=== PATIENT | male | born 1975 | race Caucasian/White ===

== ENCOUNTER → 2017-06-10 08:53 | Outpatient (CLI) | payer BC, SELFPAY ==
[2017-06-10 10:02] LABS: Absolute Lymphocyte Count 2.15 X10^3/ul (0.83-4.51); Absolute Neutrophil Count 3.3 X10^3/uL (2.0-7.7); Basophil# 0.03 X10^3/uL; Basophil% 0.5 % (0-1); Eosinophils% 1.6 % (0-5); Hemoglobin 17.6 g/dl (13.0-16.5); Lymphocyte # 2.15 X10^3/ul (4.0); Lymphocyte % 35.2 % (19-41); Mean Corp Hgb Conc 35.9 g/gl (32-36); Mean Corpuscular Hgb 32.8 pg (27.0-32.0); Mean Corpuscular Volume 91.2 fL (80-94); Mean Platelet Vol. 12.4 fl (6.2-12.0); Monocyte# 0.54 X10^3/uL; Monocyte% 8.9 % (0-10); Neutrophil # 3.27 X10^3/uL (2.7-7.7); Neutrophil % 53.6 % (47-70); Platelet Count 176 K/mm3 (150-450); RBC Distribution Width CV 12.4 % (11.6-14.6); RBC Distribution Width SD 41.4 fl (35.1-43.9); Red Blood Count 5.37 M/mm3 (4.6-6.2); White Blood Count 6.1 K/mm3 (4.4-11.0)
[2017-06-10 10:07] LABS: POSITIVE COUNT NO; POSITIVE DIFFERENTIAL NO; POSITIVE MORPHOLOGY NO
[2017-06-10 10:14] LABS: ALB/GLOB Ratio 1.3 RATIO (0.9-2.4); AST(SGOT) 33 U/L (15-37); Alanine Aminotransfer ALT/SGPT 67 U/L (16-61); Albumin, Serum 4.3 g/dL (3.2-5.0); Alkaline Phosphatase 86 U/L (45-117); Anion Gap 7 (5-15); BUN 14 mg/dL (7-18); BUN/Creat Ratio 14.2 RATIO (10-20); Chloride 103 mmol/L (98-107); Cholesterol 211 mg/dL (200); Creatinine, Serum 0.99 mg/dL (0.70-1.30); EST Glomerular Filtration Rate 88 mL/min (>60); Est Glom Filt Rate - Afr Amer 106 mL/min (>60); Globulin 3.3 g/dL (2.2-4.2); Glucose 94 mg/dL (70-110); High Density Lipoprotein 41 mg/dL; Magnesium 2.2 mg/dL (1.6-2.6); Protein, Total 7.6 g/dL (6.4-8.2); Sodium Level 138 mmol/L (136-145); Triglycerides 143 mg/dL; Very Low Density Lipoprotein 29 mg/dL (5-40)
== END ==
PROVIDERS: Family Provider Family Medicine; PCP Family Medicine; Visit Provider Family Medicine
DX: Z00.00 Encounter for general adult medical examination without abnormal findings (principal)
CPT/HCPCS: 36415; 80053; 80061; 83735; 85025

== ENCOUNTER → 2019-07-29 10:31 | Outpatient (CLI) | payer BC, SELFPAY ==
[2019-07-29 12:38] LABS: Hematocrit 51.7 % (40-54); Mean Corp Hgb Conc 34.8 g/dL (32-36); Mean Corpuscular Hgb 31.6 pg (27.0-32.0); Mean Corpuscular Volume 90.9 fL (80-94); Mean Platelet Vol. 11.8 fl (6.2-12.0); Platelet Count 216 K/mm3 (150-450); RBC Distribution Width CV 11.9 % (11.6-14.6); RBC Distribution Width SD 39.1 fl (35.1-43.9); Red Blood Count 5.69 M/mm3 (4.6-6.2); White Blood Count 6.9 K/mm3 (4.4-11.0)
[2019-07-29 13:11] LABS: Anion Gap 6 (5-15); BUN 15 mg/dL (7-18); BUN/Creat Ratio 16.6 RATIO (10-20); Calcium,Total 9.6 mg/dL (8.5-10.1); Chloride 109 mmol/L (98-107); EST Glomerular Filtration Rate 96 mL/min (>60); Est Glom Filt Rate - Afr Amer 117 mL/min (>60); Glucose 85 mg/dL (74-106); Magnesium 1.9 mg/dL (1.6-2.6); Potassium 3.8 mmol/L (3.5-5.1); Sodium Level 142 mmol/L (136-145); Thyroid Stim Hormone (TSH) 1.59 uIU/mL (0.358-3.74)
[2019-07-29 14:06] LABS: Scan Indicated on CBC? Y/N YES- FLAGS NOTED
[2019-08-01 15:39] LABS: Pathologist Review Reviewed
== END ==
PROVIDERS: Family Medicine; PCP Family Medicine; Referring Provider Family Medicine; Visit Provider Family Medicine
DX: I48.91 Unspecified atrial fibrillation (principal)
CPT/HCPCS: 36415; 80048; 83735; 84443; 85027

== ENCOUNTER 2019-07-29 13:28 | Emergency (ER) | payer BC, SELFPAY ==
[2019-07-29 13:29] VITALS: BP 117/87; PULSE 80; RESP 19; TEMP 36.4; O2SAT 96; BMI 29.7
--- NOTE | 2019-07-29 13:36 | EKG12_ITS ---
Test Reason : Blood Pressure : / mmHG Vent. Rate : 088 BPM Atrial Rate : 091 BPM P-R Int : 000 ms QRS Dur : 078 ms QT Int : 328 ms P-R-T Axes : 000 044 029 degrees QTc Int : 396 ms Atrial fibrillation Abnormal ECG Confirmed by BRO QURESHI MD ([id number]), editorial cartoonist HUSSAIN JOHN ([id number]) on 08/01/2019 10:51:31 AM Referred By: MITCHELL Confirmed By:BRO QURESHI MD
--- NOTE | 2019-07-29 13:36 | RAD_ITS ---
STUDY: X-RAY CHEST REASON FOR EXAM: Male, 44 years old. CHEST PAIN, PALPITATIONS, LIGHTHEADED TECHNIQUE: Single AP portable view of the chest. COMPARISON: None. FINDINGS: EKG electrode are seen. The lungs are clear and expanded. There is no demonstrated pleural abnormality. Normal size heart. Normal mediastinum and fiordaliza. Normal visualized pulmonary arteries. Normal visualized aortic arch and descending thoracic aorta. Normal visualized thoracic spine. Normal visualized ribs, clavicles, and shoulders. There is no demonstrated abnormality of the visualized soft tissue structures of the upper abdomen. RAD/Chest 1 View (Portable) IMPRESSION: Normal x-ray examination of the chest. Electronically Signed: Hong Foreman, at 14:23 EDT , Service support ,
--- NOTE | 2019-07-29 13:37 | ED.DCSUM_ITS ---
History of Present Illness Chief Complaint: Palpitations Informant: Patient Onset: Days Context: Gradual Onset Timing: Intermittent Current Severity: Moderate Maximum Severity: Moderate Narrative: The patient is an otherwise healthy 44-year-old male that presents to the emergency department with palpitations and near syncope. The patient states that for the past few days, he is noticed that he felt like his heart was fluttering. He states that today, when he got up, he felt very lightheaded and felt as if he was going to pass out. He felt like his heart was skipping beats. He went and saw his primary care. He had an EKG done and was diagnosed with new A. fib. He was started on metoprolol. He states he took 1 dose, but was feeling lightheaded and felt as if he was going to pass out again. He presented here. Prior similar symptoms: No Recent Illness/Hospitalization: No Past Medical History - Allergies and Home Meds Allergies/Adverse Reactions: Allergies No Known Allergies Allergy (Verified 07/29/19 13:34) Primary Care Physician: Quang Gonzáles MD [STAFF PHYSICIAN] - Prior records reviewed: Yes Past Medical History: - - a fib Surgical History: noncontributory Smoking Status: Current some day smoker Review of Systems General: Denies: Chills, Fever, Sweats Eyes: Denies: Visual changes - bilaterally, Diplopia ENT: Denies: Rhinorrhea, Sore throat Cardiovascular: Reports: Palpitations, Heart racing. Denies: Chest pain Respiratory: Denies: Dyspnea, Cough, Dyspnea on exertion Gastrointestinal: Denies: Abdominal pain, Nausea, Vomiting, Diarrhea, Melena, Hematochezia Genitourinary: Denies: Dysuria, Hematuria, Frequency Musculoskeletal: Denies: Back pain, Extremity Pain Skin: Denies: Rash, Wounds Neurological: Denies: Headache, Weakness, Numbness Physical Exam Vital Signs/Narrative: Vital Signs Temp Pulse Resp BP Pulse Ox 07/29/19 13:29 97.6 F L 80 19 H 117/87 H 96 Inital Vital Signs reviewed: Yes General: Well nourished, Well developed, No Acute Distress Head: Normocephalic, Atraumatic Eyes: Perrl, EOMI ENT: Moist mucous membranes, No rhinorrhea Neck: Supple, Nontender Cardiovascular: Regular rhythm, No murmurs, Irregular Respiratory: No distress, CTA bilaterally, Chest nontender Abdomen: Soft, Nontender, Nondistended, Normal bowel sounds Back: Nontender, Normal Inspection Extremities: Nontender, No edema Skin: Normal color, No rash Neurological: Alert, Oriented x3, Cranial nerves II-XII grossly intact, Normal Strength, Normal Sensation Psychological: Normal affect, Normal Mood Diagnostic/Tx/Re-eval Chest X-Ray - ED: 2 View, Normal, Heart, Lungs, Mediastinum Clinical Impression(s) from Imaging Studies Chest X-Ray 07/29/19 13:36 IMPRESSION: Normal x-ray examination of the chest. Electronically Signed: Hong Foreman, at 14:23 EDT , Service support , Abnormal Lab Results 07/29/19 07/29/19 13:40 13:40 WBC 10.1 RBC 5.49 Hgb 17.3 H Hct 49.0 MCV 89.3 MCH 31.5 MCHC 35.3 RDW Std Deviation 37.9 RDW Coeff of Fifi 11.8 Plt Count 215 MPV 11.3 Immature Gran % (Auto) 0.200 Neut % (Auto) 74.4 H Lymph % (Auto) 19.3 [place] % (Auto) 5.6 Eos % (Auto) 0.1 Baso % (Auto) 0.4 Absolute Neuts (auto) 7.5 Absolute Lymphs (auto) 1.94 Nucleated RBC % 0 Sodium 140 Potassium 3.9 Chloride 110 H Carbon Dioxide 25.0 Anion Gap 5 BUN 13 Creatinine 0.88 Estim Creat Clear Calc 111.71 Est GFR (MDRD) Af Amer 120 Est GFR (MDRD) Non-Af 99 BUN/Creatinine Ratio 14.8 Glucose 106 Calcium 9.2 Magnesium 2.1 Troponin I < 0.015 TSH 1.17 - Rhythm Strip Rhythm Strip: A-fib Rate: 80 Ectopy: None - EKG Initial EKG Interpretation: Atrial Fibrillation Prior: No Prior - Medical Decision Making The patient presents with palpitations and near syncope. He was just diagnosed with atrial fibrillation today. I did calculate the patient's chads 2 score which was 0. EKG was obtained on arrival. It showed atrial fibrillation without rapid ventricular response. Screening labs were obtained were unre markable. Chest x-ray shows no significant evidence of enlarged cardiac silhouette or volume overload. The patient has had no chest pain. I did discuss his case with Dr. Gonzáles. He is comfortable with my plan for discharge with outpatient follow-up. He did request that I start novel anticoagulation as the patient does have an alcohol history until he can at least have his echo. The patient is comfortable with this plan of care. He will be seen in the office early next week for further cardiology evaluation. Impression 1. New onset A. fib ED Disposition - Plan for ED Patient: Instructions: Atrial Fibrillation Prescriptions: Rivaroxaban [Xarelto] 15 mg PO BID #42 tab Prescription Printed Referrals: Quang Gonzáles MD [STAFF PHYSICIAN] -
--- NOTE | 2019-07-29 13:40 | ED.RN ---
NO OLD EKG
[2019-07-29 13:44] VITALS: O2SAT 100
[2019-07-29 13:49] LABS: Absolute Lymphocyte Count 1.94 X10^3/uL (0.83-4.51); Absolute Neutrophil Count 7.5 X10^3/uL (2.0-7.7); Basophil# 0.04 X10^3/uL; Basophil% 0.4 % (0-1); Eosinophil# 0.01 X10^3/uL; Eosinophils% 0.1 % (0-5); Hemoglobin 17.3 g/dL (13.0-16.5); Lymphocyte # 1.94 X10^3/ul (4.0); Lymphocyte % 19.3 % (19-41); Mean Corp Hgb Conc 35.3 g/dL (32-36); Mean Corpuscular Hgb 31.5 pg (27.0-32.0); Mean Corpuscular Volume 89.3 fL (80-94); Mean Platelet Vol. 11.3 fl (6.2-12.0); Monocyte# 0.56 X10^3/uL; Monocyte% 5.6 % (0-10); NRBC Flagged by Analyzer 0 % (0-5); Neutrophil # 7.48 X10^3/uL (2.7-7.7); Neutrophil % 74.4 % (47-70); Platelet Count 215 K/mm3 (150-450); RBC Distribution Width CV 11.8 % (11.6-14.6); RBC Distribution Width SD 37.9 fl (35.1-43.9); Red Blood Count 5.49 M/mm3 (4.6-6.2); White Blood Count 10.1 K/mm3 (4.4-11.0)
[2019-07-29 14:15] LABS: Anion Gap 5 (5-15); BUN 13 mg/dL (7-18); BUN/Creat Ratio 14.8 RATIO (10-20); Calcium,Total 9.2 mg/dL (8.5-10.1); Chloride 110 mmol/L (98-107); Creatinine, Serum 0.88 mg/dL (0.70-1.30); EST Glomerular Filtration Rate 99 mL/min (>60); Est Glom Filt Rate - Afr Amer 120 mL/min (>60); Estimated Creatinine Clearance 111.71 ml/min; Glucose 106 mg/dL (74-106); Magnesium 2.1 mg/dL (1.6-2.6); Potassium 3.9 mmol/L (3.5-5.1); Sodium Level 140 mmol/L (136-145); Thyroid Stim Hormone (TSH) 1.17 uIU/mL (0.358-3.74)
[2019-07-29] MEDS: 0.9% Normal Saline 1,000 ML 150 ML IV (14:55)
[2019-07-29 15:17] VITALS: BP 114/67; PULSE 74; RESP 16; O2SAT 98
== END 2019-07-29 15:18 | disposition home or self-care (01) ==
PROVIDERS: Emergency Provider Emergency Medicine; PCP Family Medicine
DX: I48.91 Unspecified atrial fibrillation (principal); F17.200 Nicotine dependence, unspecified, uncomplicated
CPT/HCPCS: 71045; 80048; 83735; 84443; 84484; 85025; 93005; 99284; A4216

== ENCOUNTER → 2019-08-04 08:34 | Outpatient (CLI) | payer BC, SELFPAY ==
[2019-08-02 14:03] VITALS: BMI 29.5
[2019-08-04 09:15] LABS: AST(SGOT) 34 U/L (15-37); Alanine Aminotransfer ALT/SGPT 75 U/L (16-61); Albumin, Serum 4.2 g/dL (3.2-5.0); Alkaline Phosphatase 91 U/L (45-117); Bilirubin, Direct 0.17 mg/dL (0.00-0.30); Cholesterol 206 mg/dL (200); Globulin 3.4 g/dL (2.2-4.2); High Density Lipoprotein 34 mg/dL; Protein, Total 7.6 g/dL (6.4-8.2); Triglycerides 133 mg/dL; Very Low Density Lipoprotein 27 mg/dL (5-40)
== END ==
PROVIDERS: PCP Family Medicine; Referring Provider Internal Medicine Cardiovascular Disease; Visit Provider Internal Medicine Cardiovascular Disease
DX: E78.5 Hyperlipidemia, unspecified (principal)
CPT/HCPCS: 36415; 80061; 80076

== ENCOUNTER → 2019-08-05 14:39 | Outpatient (CLI) | payer BC, SELFPAY ==
[2019-08-02 14:03] VITALS: BMI 29.5
--- NOTE | 2019-08-05 14:43 | ECHOD_ITS ---
Reason For Study: AFIB/FLUTTER Procedure This was a 2D Doppler, Color Flow transthoracic echocardiogram. Exam performed in department. Left Ventricle Normal size and thickness. The estimated ejection fraction is 65 %. Normal diastology for age. No regional wall motion abnormalities noted. Right Ventricle Normal size and thickness. Normal systolic function. Atria Normal left atrium. Normal right atrium. Normal atrial septum. Mitral Valve The mitral valve is structurally normal. No prolapse or stenosis seen. Trivial mitral valve insufficiency. Tricuspid Valve Normal tricuspid valve. Trivial tricuspid valve insufficiency. Right ventricular systolic pressure estimated to be 37 mmHg. Mild pulmonary hypertension. Aortic Valve Trisinus/trileaflet aortic valve. Normal aortic valve. Pulmonic Valve Normal pulmonic valve. Great Vessels Normal aortic root. Normal arch. Normal inferior vena cava. Inferior vena cava collapse with sniff. Pericardium/Pleural No pericardial effusion. MMode/2D Measurements & Calculations LVIDd: 5.3 cm IVSd: 0.86 cm Ao root diam: 3.1 cm LVIDs: 3.3 cm LVPWd: 0.99 cm RVDd: 3.6 cm FS: 36.6 % LAV(MOD-bp): 46.8 ml LA A4 area: 16.1 cm2 LA dimension(2D): 3.4 cm LAV(MOD-bp) Indexed: 21.9 ml/m2 LAV(MOD-sp2): 48.4 ml LAV(MOD-sp4): 44.7 ml RA A4 area: 13.7 cm2 Time Measurements MV dec time: 0.19 sec Doppler Measurements & Calculations MV E max mickey: 62.6 cm/sec Lat Peak E' Mickey: 9.3 cm/sec Med Peak E' Mickey: 8.6 cm/sec MV A max mickey: 56.9 cm/sec E/E' lat: 6.7 E/E' med: 7.2 MV E/A: 1.1 Ao V2 max: 109.2 cm/sec LV V1 max: 97.6 cm/sec PA V2 max: 118.8 cm/sec Ao max P.8 mmHg LV V1 max P.8 mmHg Ao V2 mean: 80.9 cm/sec Ao mean P.8 mmHg Ao V2 VTI: 19.2 cm TR max mickey: 256.4 cm/sec TR max P.6 mmHg Interpretation Summary The estimated ejection fraction is 65 %. Normal diastology for age. Trivial mitral valve insufficiency. Trivial tricuspid valve insufficiency. Right ventricular systolic pressure estimated to be 37 mmHg. Ordering Physician: Quang Gonzáles Referring Physician: Bryn Carrion Performed By: Nazanin Olivas RDCS, RVT
== END ==
PROVIDERS: PCP Family Medicine; Referring Provider Internal Medicine Cardiovascular Disease; Visit Provider Internal Medicine Cardiovascular Disease
DX: R55 Syncope and collapse (principal); R00.2 Palpitations; I48.91 Unspecified atrial fibrillation; E78.5 Hyperlipidemia, unspecified
CPT/HCPCS: 93306

== ENCOUNTER → 2019-09-12 09:58 | Outpatient (CLI) | payer BC, SELFPAY ==
[2019-08-02 14:03] VITALS: BMI 29.5
--- NOTE | 2019-09-12 09:59 | STE_ITS ---
Reason For Study: ATRIAL FIB/FLUTTER Stress Results Protocol: Monty Protocol Maximum Predicted HR: 174 bpm Target HR: 148 bpm % Maximum Predicted HR: 93 % DurationHeart Rate Stage (mm:ss) (bpm) BP BASELINE 76 122/88 STAGE 1 3:00 103 122/80 STAGE 2 3:00 113 150/78 STAGE 3 3:00 129 148/76 STAGE 4 3:00 162 160/78 RECOVERY 111 138/90 Stress Duration: 12:00 mm:ss Maximum Stress HR: 162 bpm Baseline Echocardiogram Findings The estimated ejection fraction is 65 %. Stress Echo Wall motion Data Resting WM Intermediate WM Stress WM Resting Wall Motion Wall Motion Stress No regional wall motion No regional wall motion abnormalities noted. abnormalities noted. EKG Data The baseline ECG displays normal sinus rhythm. The patient exercised according to the regular Monty protocol for a total duration of 12:00. The maximum heart rate attained was 162 beats per minute. This was 93% of maximum predicted heart rate. The patient exercised into stage 5 of the Monty protocol. During stress, there were no ST or T wave changes noted to suggest ischemia. No clinical angina was noted. No arrhythmias noted. Interpretation Summary The estimated ejection fraction is 65 %. Normal, adequate, treadmill echocardiogram. Negative for ischemia by EKG and echocardiographic criteria. No anginal symptoms noted. No arrhythmias noted. Average exercise capacity for age. Appropriate blood pressure response to exercise. Test terminated due to attainment target heart rate and dyspnea. Final LVEF is 75%. No complications. Ordering Physician: Quang Gonzáles Referring Physician: Quang Gonzáles Performed By: Manda Orozco RDCS
== END ==
PROVIDERS: PCP Family Medicine; Referring Provider Internal Medicine Cardiovascular Disease; Visit Provider Internal Medicine Cardiovascular Disease
DX: I48.91 Unspecified atrial fibrillation (principal); E78.5 Hyperlipidemia, unspecified; R00.2 Palpitations; R55 Syncope and collapse
CPT/HCPCS: 93017; 93350

== ENCOUNTER → 2019-11-03 08:14 | Outpatient (CLI) | payer BC, SELFPAY ==
[2019-08-02 14:03] VITALS: BMI 29.5
== END ==
PROVIDERS: PCP Family Medicine; Referring Provider Internal Medicine Cardiovascular Disease; Visit Provider Internal Medicine Cardiovascular Disease
DX: G47.10 Hypersomnia, unspecified (principal); I48.91 Unspecified atrial fibrillation
CPT/HCPCS: 95806

== ENCOUNTER → 2020-02-17 09:05 | Outpatient (CLI) | payer BC, SELFPAY ==
[2019-08-02 14:03] VITALS: BMI 29.5
[2020-02-17 11:22] LABS: ALB/GLOB Ratio 1.2 RATIO (0.9-2.4); AST(SGOT) 28 U/L (15-37); Alanine Aminotransfer ALT/SGPT 54 U/L (16-61); Albumin, Serum 4.1 g/dL (3.2-5.0); Alkaline Phosphatase 92 U/L (45-117); Anion Gap 4 (5-15); BUN 12 mg/dL (7-18); BUN/Creat Ratio 12.2 RATIO (10-20); Calcium,Total 9.2 mg/dL (8.5-10.1); Chloride 106 mmol/L (98-107); Cholesterol 209 mg/dL (200); Creatinine, Serum 0.98 mg/dL (0.70-1.30); EST Glomerular Filtration Rate 87 mL/min (>60); Est Glom Filt Rate - Afr Amer 105 mL/min (>60); Globulin 3.5 g/dL (2.2-4.2); Glucose 92 mg/dL (74-106); High Density Lipoprotein 37 mg/dL; Magnesium 2.3 mg/dL (1.6-2.6); Potassium 4.1 mmol/L (3.5-5.1); Protein, Total 7.6 g/dL (6.4-8.2); Sodium Level 139 mmol/L (136-145); Thyroid Stim Hormone (TSH) 1.78 uIU/mL (0.358-3.74); Triglycerides 163 mg/dL; Very Low Density Lipoprotein 33 mg/dL (5-40)
== END ==
PROVIDERS: PCP Family Medicine; Referring Provider Family Medicine; Visit Provider Family Medicine
DX: I48.91 Unspecified atrial fibrillation (principal)
CPT/HCPCS: 36415; 80053; 80061; 83735; 84443

== ENCOUNTER → 2020-07-04 | Outpatient (CLI) | payer BC, SELFPAY ==
[2020-03-16 10:58] VITALS: BMI 29.8
== END | disposition home or self-care (01) ==
LOC: LABSPEC 13:47
PROVIDERS: PCP Family Medicine; Referring Provider Family Medicine; Visit Provider Family Medicine
DX: J06.9 Acute upper respiratory infection, unspecified (principal)
CPT/HCPCS: 87635; U0003

== ENCOUNTER 2022-01-25 14:30 | Emergency (ER) | payer OTHER, SELFPAY ==
[2022-01-25 14:31] VITALS: BP 125/81; PULSE 99; RESP 16; TEMP 36.6; O2SAT 99; BMI 29.0
[2022-01-25 14:59] VITALS: O2SAT 98
--- NOTE | 2022-01-25 14:59 | EKG12_ITS ---
Test Reason : PALPITATIONS Blood Pressure : / mmHG Vent. Rate : 101 BPM Atrial Rate : 000 BPM P-R Int : 000 ms QRS Dur : 078 ms QT Int : 322 ms P-R-T Axes : 000 040 038 degrees QTc Int : 417 ms Atrial fibrillation with rapid ventricular response Abnormal ECG Confirmed by TITUS MARRUFO, BRO ([id number]), newspaper editor EDWARD GASPAR ([id number]) on 01/27/2022 1:59:10 PM Referred By: Confirmed By:BRO QURESHI MD
--- NOTE | 2022-01-25 15:04 | RAD_ITS ---
STUDY: X-RAY CHEST REASON FOR EXAM: Male, 46 years old. chest pain TECHNIQUE: Single AP portable view of the chest. COMPARISON: July 29, 2019 FINDINGS: The lungs are clear and expanded. There is no demonstrated pleural abnormality. Normal size heart. Normal mediastinum and fiordaliza. Normal visualized pulmonary arteries. Normal visualized aortic arch and descending thoracic aorta. Normal visualized thoracic spine. Normal visualized ribs, clavicles, and shoulders. There is no demonstrated abnormality of the visualized soft tissue structures of the upper abdomen. RAD/Chest 1 View (Portable) IMPRESSION: Normal x-ray examination of the chest. Electronically Signed: Bertin Jensen MD at 15:25 EDT ,
[2022-01-25 15:07] LABS: Absolute Lymphocyte Count 3.14 X10^3/uL (0.83-4.51); Absolute Neutrophil Count 6.4 X10^3/uL (2.0-7.7); Basophil# 0.06 X10^3/uL; Basophil% 0.6 % (0-1); Eosinophil# 0.02 X10^3/uL; Eosinophils% 0.2 % (0-5); Hematocrit 50.9 % (40-54); Hemoglobin 17.7 g/dL (13.0-16.5); Lymphocyte # 3.14 X10^3/ul (0.83-4.51); Lymphocyte % 30.3 % (19-41); Mean Corp Hgb Conc 34.8 g/dL (32-36); Mean Corpuscular Hgb 31.7 pg (27.0-32.0); Mean Corpuscular Volume 91.1 fL (80-94); Mean Platelet Vol. 12.1 fl (6.2-12.0); Monocyte% 6.7 % (0-10); NRBC Flagged by Analyzer 0 % (0-5); Neutrophil # 6.43 X10^3/uL (2.7-7.7); Neutrophil % 61.9 % (47-70); Platelet Count 229 K/mm3 (150-450); RBC Distribution Width CV 12.1 % (11.6-14.6); RBC Distribution Width SD 40.1 fl (35.1-43.9); Red Blood Count 5.59 M/mm3 (4.6-6.2); White Blood Count 10.4 K/mm3 (4.4-11.0)
[2022-01-25 15:24] LABS: Anion Gap 10 (5-15); BUN 9 mg/dL (7-18); BUN/Creat Ratio 9.5 RATIO (10-20); Calcium,Total 9.8 mg/dL (8.5-10.1); Chloride 105 mmol/L (98-107); Creatinine, Serum 0.94 mg/dL (0.70-1.30); EST Glomerular Filtration Rate 90 mL/min (>60); Est Glom Filt Rate - Afr Amer 109 mL/min (>60); Estimated Creatinine Clearance 99.23 ml/min; Glucose 90 mg/dL (74-106); Potassium 3.3 mmol/L (3.5-5.1); Sodium Level 141 mmol/L (136-145); Troponin-I HS (w/2H Reflex) 4 pg/mL (3.0-78.0)
--- NOTE | 2022-01-25 15:49 | EX.ED.DYSGE1 ---
HPI History of Present Illness Chief Complaint: Palpitations Narrative Narrative: 46-year-old male presenting with palpitations. He states he has a history of atrial fibrillation in the past. He states he was started on 50 mg of metoprolol p.o. twice daily and Xarelto. He states he followed up with Dr. Ojeda for this. He had an echocardiogram and a stress test which were good. Patient requested to be weaned off of the medication. He states has been good for a couple of years without any palpitations except for maybe a small run. Today he had palpitations that started last night after eating. He went to the urgent care to get refills on his medications because his prescriptions were old and they sent him to the emergency room. He does not have any chest pain. He is not short of breath. No nausea or vomiting. No history of DVT/PE and no risk factors. He states he has been healthy and over this timeframe he has quit smoking. He drinks occasional beers maybe twice a month. He states has been exercising. [facility] Medical History Hyperlipidemia Near syncope New onset atrial fibrillation (07/13/19) Nicotine dependence KIMBER (obstructive sleep apnea) Psoriatic arthritis Home Medications ascorbic acid (vitamin C) 1,000 mg tablet 1 g PO DAILY 03/18/21 [History Last Taken Unknown] calcipotriene 0.005 % topical ointment 1 applic topical DAILY 03/18/21 [History Last Taken Unknown] cholecalciferol (vitamin D3) 125 mcg (5,000 unit) tablet 125 mcg PO DAILY 03/18/21 [History Last Taken Unknown] clobetasol 0.05 % topical cream 1 applic topical DAILY 03/18/21 [History Last Taken Unknown] apremilast 30 mg tablet (Otezla) 30 mg PO BID 01/25/22 [History Last Taken Unknown] metoprolol tartrate 50 mg tablet 50 mg PO BID #60 tabs 01/25/22 [Rx Last Taken Unknown] Allergy/AdvReac Type Severity Reaction Status Date / Time No Known Allergies Allergy Verified 03/18/21 08:37 Surgical History H/O arthroscopy of left knee Social History Smoking Status: Former smoker quit date: 07/23/19 alcohol intake: current alcohol intake frequency: a few times a month ROS ROS ED Constitutional Constitutional ED: Denies chills or fever(s) Eyes Eyes: Denies change in vision ENT ENT ED: Denies rhinorrhea or sore throat Cardiovascular Cardiovascular: Reports palpitations and racing heartbeat; Denies chest pain Respiratory/Chest Respiratory/Chest: Denies cough or dyspnea Gastrointestinal Gastrointestinal: Denies abdominal pain or constipation Genitourinary Genitourinary ED: Denies dysuria or hematuria Musculoskeletal Musculoskeletal: Denies arthralgias Integumentary Denies abscess or Abrasions Neurologic Neurologic: Denies headache(s) or paresthesias Psychiatric Psychiatric: Denies anxiety or depression EXAM Physical Exam Const Vital Signs: 01/25/22 14:31 01/25/22 14:36 01/25/22 14:59 Temperature 97.9 F Temperature Source Oral Pulse Rate 99 Respiratory Rate 16 Respiratory Effort Normal Blood Pressure 125/81 H Blood Pressure Mean 95 Pulse Ox 99 98 Oxygen Delivery Method Room Air Room Air Positive well nourished General Appearance ED: NAD; Negative for pallor HEENT Reports moist mucous membranes Negative for trauma Eyes PERRL and EOMs intact bilaterally General Eye ED: Negative for pale conjunctiva Chest Wall inspection of chest normal and palpation of chest normal Resp normal respiratory effort and clear to auscultation bilaterally Auscultation: Negative for rales, rhonchi or wheezes Cardio Rhythm: abnormal rhythm irregularly irregular GI normal to inspection, nondistended, normoactive bowel sounds Neuro oriented x3 and CN's II-XII intact bilaterally Sensorium / Orientation: alert Motor Exam: strength 5/5 throughout Psych mental status grossly normal Skin no rashes or lesions noted and no wounds General Skin Exam: Negative for jaundice or pallor MDM MDM MDM Narrative Medical decision making narrative: Patient presenting with palpitations. He was seen at the urgent care and was sent to the emergency room. He has a history of atrial fibrillation and his EKG here shows atrial fibrillation a rate of 101 bpm. Patient denies any chest pain. Lab work was obtained and his CBC and BMP are unremarkable with exception of a potassium of 3.3. High-sensitivity troponin is 4. Chest x-ray on my interpretation shows no acute cardiopulmonary process and the radiologist does agree patient has no DVT/PE risk factors. He request refills on his medications. I did calculate his [id number] score and by this it does not seem that he needs to be on any anticoagulation. I will restart him on metoprolol 50 mg p.o. twice daily. Patient states he will take baby aspirin daily. He is to follow-up with Dr. Ojeda. Impression: 1. Paroxysmal A. fib 2. Palpitation Lab Data Attestation: I reviewed the patient's lab results. Labs: Laboratory Results - last 24 hr 01/25/22 01/25/22 14:15 14:15 WBC 10.4 RBC 5.59 Hgb 17.7 H Hct 50.9 MCV 91.1 MCH 31.7 MCHC 34.8 RDW Std Deviation 40.1 RDW Coeff of Fifi 12.1 Plt Count 229 MPV 12.1 H Immature Gran % (Auto) 0.300 Neut % (Auto) 61.9 Lymph % (Auto) 30.3 [place] % (Auto) 6.7 Eos % (Auto) 0.2 Baso % (Auto) 0.6 Absolute Neuts (auto) 6.4 Absolute Lymphs (auto) 3.14 Nucleated RBC % 0 Sodium 141 Potassium 3.3 L Chloride 105 Carbon Dioxide 26.0 Anion Gap 10 BUN 9 Creatinine 0.94 Estim Creat Clear Calc 99.23 Est GFR (MDRD) Af Amer 109 Est GFR (MDRD) Non-Af 90 BUN/Creatinine Ratio 9.5 L Glucose 90 Calcium 9.8 Troponin I High Sens 4 Radiography Diagnostic Testing: Clinical Impression(s) from Imaging Studies Chest X-Ray 01/25/22 15:04 IMPRESSION: Normal x-ray examination of the chest. Electronically Signed: Bertin Jensen MD at 15:25 EDT Reading Location ID and State: [facility] / [place] , Service support , Discharge Plan Triage Chief Complaint: Palpitations ED Provider: Walt Mead Dx/Rx/DC Orders Instructions: ED AFIB Prescriptions: New metoprolol tartrate 50 mg tablet 50 mg PO BID Qty: 60 0RF No Action calcipotriene 0.005 % ointment 1 applic topical DAILY clobetasol 0.05 % cream 1 applic topical DAILY ascorbic acid (vitamin C) 1,000 mg tablet 1 g PO DAILY cholecalciferol (vitamin D3) 125 mcg (5,000 unit) tablet 125 mcg PO DAILY Otezla 30 mg Tablet 30 mg PO BID Primary Care Provider: Bryn Carrion Referrals: Sunny Ojeda MD [Med Staff - Active Staff] - As soon as possible Bryn Carrion MD [Primary Care Provider] - Disposition Disposition: Home, Self Care
[2022-01-25 16:12] VITALS: BP 120/78; PULSE 103; RESP 16; O2SAT 98
[2022-01-25 17:03] LABS: Reflex Troponin-HS? (from REC) Y
== END 2022-01-25 16:13 | disposition home or self-care (01) ==
PROVIDERS: Emergency Provider Student in an Organized Health Care Education/Training Program; PCP Family Medicine; Visit Provider Student in an Organized Health Care Education/Training Program
DX: I48.0 Paroxysmal atrial fibrillation (principal); E78.5 Hyperlipidemia, unspecified; Z79.899 Other long term (current) drug therapy; Z87.891 Personal history of nicotine dependence
CPT/HCPCS: 71045; 80048; 84484; 85025; 93005; 99285

== ENCOUNTER → 2022-12-11 | Outpatient (CLI) | payer MEDICAID, SELFPAY ==
[2022-12-11 12:12] LABS: Absolute Lymphocyte Count 1.84 X10^3/uL (0.83-4.51); Absolute Neutrophil Count 3.3 X10^3/uL (2.0-7.7); Basophil# 0.04 X10^3/uL; Basophil% 0.7 % (0-1); Eosinophil# 0.05 X10^3/uL; Eosinophils% 0.9 % (0-5); Hematocrit 49.4 % (40-54); Hemoglobin 16.4 g/dL (13.0-16.5); Lymphocyte # 1.84 X10^3/ul (0.83-4.51); Mean Corp Hgb Conc 33.2 g/dL (32-36); Mean Corpuscular Hgb 30.9 pg (27.0-32.0); Mean Corpuscular Volume 93.2 fL (80-94); Mean Platelet Vol. 12.2 fl (6.2-12.0); Monocyte# 0.55 X10^3/uL; Monocyte% 9.6 % (0-10); NRBC Flagged by Analyzer 0 % (0-5); Neutrophil # 3.25 X10^3/uL (2.7-7.7); Neutrophil % 56.5 % (47-70); Platelet Count 200 K/mm3 (150-450); RBC Distribution Width CV 12.2 % (11.6-14.6); RBC Distribution Width SD 42.4 fl (35.1-43.9); White Blood Count 5.8 K/mm3 (4.4-11.0)
[2022-12-11 13:10] LABS: ALB/GLOB Ratio 1.1 RATIO (0.9-2.4); AST(SGOT) 25 U/L (15-37); Alanine Aminotransfer ALT/SGPT 47 U/L (16-61); Albumin, Serum 3.9 g/dL (3.2-5.0); Alkaline Phosphatase 89 U/L (45-117); Anion Gap 5 (5-15); BUN 12 mg/dL (7-18); BUN/Creat Ratio 14.3 RATIO (10-20); Chloride 108 mmol/L (98-107); Creatinine, Serum 0.84 mg/dL (0.70-1.30); EST Glomerular Filtration Rate 103 mL/min (>60); Est Glom Filt Rate - Afr Amer 125 mL/min (>60); Globulin 3.5 g/dL (2.2-4.2); Glucose 94 mg/dL (74-106); Magnesium 2.4 mg/dL (1.6-2.6); Potassium 4.3 mmol/L (3.5-5.1); Protein, Total 7.4 g/dL (6.4-8.2); Sodium Level 139 mmol/L (136-145); Thyroid Stim Hormone (TSH) 0.84 uIU/mL (0.358-3.74)
== END | disposition home or self-care (01) ==
LOC: MFPLAB 10:29
PROVIDERS: PCP Family Medicine; Visit Provider Family Medicine
DX: I48.91 Unspecified atrial fibrillation (principal)
CPT/HCPCS: 36415; 80053; 83735; 84443; 85025

== ENCOUNTER → 2023-01-19 | Outpatient (CLI) | payer MEDICAID, SELFPAY ==
--- NOTE | 2023-01-19 14:47 | RAD_ITS ---
STUDY: X-RAY CHEST REASON FOR EXAM: Male, 47 years old. H/o positive mantoux. TECHNIQUE: Frontal and lateral views of the chest on 3 images. COMPARISON: Chest dated January 2022. FINDINGS: The lungs are clear and expanded. There is no demonstrated pleural abnormality. Normal size heart. Normal mediastinum and fiordaliza. Normal visualized pulmonary arteries. Normal visualized aortic arch and descending thoracic aorta. Normal visualized thoracic spine. Normal visualized ribs, clavicles, and shoulders. No abnormality of the visualized soft tissue structures of the upper abdomen. RAD/Chest PA and Lateral IMPRESSION: No interval change. Normal x-ray examination of the chest. Electronically Signed: Geovanny Mcbride MD at 15:23 EDT ,
== END | disposition home or self-care (01) ==
LOC: MTRAD 14:42
PROVIDERS: PCP Family Medicine; Referring Provider Family Medicine; Visit Provider Family Medicine
DX: R76.12 Nonspecific reaction to cell mediated immunity measurement of gamma interferon antigen response without active tuberculosis (principal)
CPT/HCPCS: 71046

== ENCOUNTER → 2023-12-18 | Outpatient (CLI) | payer MEDICAID, SELFPAY ==
[2023-12-18 15:07] LABS: Absolute Lymphocyte Count 2.59 X10^3/uL (0.83-4.51); Absolute Neutrophil Count 2.6 X10^3/uL (2.0-7.7); Basophil# 0.03 X10^3/uL; Basophil% 0.5 % (0-1); Eosinophil# 0.13 X10^3/uL; Eosinophils% 2.2 % (0-5); Hematocrit 47.5 % (40-54); Hemoglobin 16.2 g/dL (13.0-16.5); Lymphocyte # 2.59 X10^3/ul (0.83-4.51); Lymphocyte % 44.3 % (19-41); Mean Corp Hgb Conc 34.1 g/dL (32-36); Mean Corpuscular Hgb 30.8 pg (27.0-32.0); Mean Corpuscular Volume 90.3 fL (80-94); Mean Platelet Vol. 11.8 fl (6.2-12.0); Monocyte# 0.45 X10^3/uL; Monocyte% 7.7 % (0-10); NRBC Flagged by Analyzer 0 % (0-5); Neutrophil # 2.63 X10^3/uL (2.7-7.7); Neutrophil % 45.1 % (47-70); Platelet Count 203 K/mm3 (150-450); RBC Distribution Width CV 12.4 % (11.6-14.6); RBC Distribution Width SD 41.2 fl (35.1-43.9); Red Blood Count 5.26 M/mm3 (4.6-6.2); White Blood Count 5.8 K/mm3 (4.4-11.0)
[2023-12-18 15:27] LABS: Vitamin D,25 Hydroxy 65.6 ng/mL
[2023-12-18 15:56] LABS: ALB/GLOB Ratio 1.2 RATIO (0.9-2.4); AST(SGOT) 35 U/L (15-37); Alanine Aminotransfer ALT/SGPT 49 U/L (16-61); Albumin, Serum 3.9 g/dL (3.2-5.0); Alkaline Phosphatase 96 U/L (45-117); Anion Gap 6 (5-15); BUN 8 mg/dL (7-18); CRP < 2.90 mg/L (0.0-3.0); Calcium,Total 8.8 mg/dL (8.5-10.1); Chloride 110 mmol/L (98-107); Cholesterol 224 mg/dL (200); Creatinine, Serum 0.89 mg/dL (0.70-1.30); EST Glomerular Filtration Rate 96 mL/min (>60); Est Glom Filt Rate - Afr Amer 116 mL/min (>60); Globulin 3.2 g/dL (2.2-4.2); Glucose 86 mg/dL (74-106); High Density Lipoprotein 37 mg/dL; Magnesium 2.4 mg/dL (1.6-2.6); PSA,Total - Annual Screen 0.71 ng/mL (0.00-4.00); Potassium 3.9 mmol/L (3.5-5.1); Protein, Total 7.1 g/dL (6.4-8.2); Sodium Level 140 mmol/L (136-145); Triglycerides 116 mg/dL; Very Low Density Lipoprotein 23 mg/dL (5-40)
[2023-12-22 11:59] LABS: ANTINUCLEAR ANTIBODIES DIRECT Negative (Negative)
== END | disposition home or self-care (01) ==
LOC: MFPLAB 11:22
PROVIDERS: PCP Family Medicine; Visit Provider Family Medicine
DX: I48.91 Unspecified atrial fibrillation (principal); L40.50 Arthropathic psoriasis, unspecified; Z12.5 Encounter for screening for malignant neoplasm of prostate; E78.5 Hyperlipidemia, unspecified
CPT/HCPCS: 84153; 36415; 80053; 80061; 82306; 83735; 85025; 86038; 86140; G0103

== ENCOUNTER 2024-01-22 09:00 | Day surgery (SDC) | payer MEDICAID, SELFPAY ==
[2024-01-22] VITALS (7 sets, daily range): BP systolic 110–131; BP diastolic 72–82; PULSE 73–84; RESP 16; TEMP 36.4–36.7; O2SAT 97–99; BMI 28.5
--- NOTE | 2024-01-22 09:18 | PRE.ANES_ITS ---
ASA Classification* ASA Classification ASA Classification: 2 Assessment & Plan Anesthesia* Anesthesia Assessment Anesthesia Assessment: Discussed sedation and/or anesthesia options, risks, benefits, and alternatives with patient/parents/legal guardian/POA. Questions invited. The patient/parents/legal guardian/POA seems to understand and agrees to proceed with anesthesia plan. Reviewed the physical assessment, medical history, allergy history and patient home medications list prior to surgery/procedure/anesthetic and documented any changes. Performed airway and anesthesia risk assessments. Anesthesia Type Anesthesia Type: MAC Anesthesia Focused Assessment* Airway Assessment Mouth opens: >3 cm Mallampati Score: II Focused Labs Anesthesia Preop lab: CBC WBC 5.8 K/mm3 (4.4-11.0) 12/18/23 11:23 RBC 5.26 M/mm3 (4.6-6.2) 12/18/23 11:23 Hgb 16.2 g/dL (13.0-16.5) 12/18/23 11:23 Hct 47.5 % (40-54) 12/18/23 11:23 Plt Count 203 K/mm3 (150-450) 12/18/23 11:23 CHEMISTRY Potassium 3.9 mmol/L (3.5-5.1) 12/18/23 11:23 Sodium 140 mmol/L (136-145) 12/18/23 11:23 Magnesium 2.4 mg/dL (1.6-2.6) 12/18/23 11:23 BUN 8 mg/dL (7-18) 12/18/23 11:23 Creatinine 0.89 mg/dL (0.70-1.30) 12/18/23 11:23 Glucose 86 mg/dL (74-106) 12/18/23 11:23 TSH 0.84 uIU/mL (0.358-3.74) 12/11/22 10:31 COAG Pre-Assessment Diagnosis/Proposed Procedure Planned Operative Procedure(s): CSCOPE Anesthesia History Anesthesia History - alarm signaler: Anesthesia History - alarm signaler Hx Hospitalization No 01/20/24 13:18 Any Problems With Anesthesia No 01/20/24 13:18 Cholinesterase deficiency No 01/20/24 13:18 You/Your Family Experience No 01/20/24 13:18 fever (hyperthermia) with Relationship Recent Exposure to Contagious Disease Does patient have nerve No 01/20/24 13:18 stimulator Patient instructed to have device shut off --Does patient have Pacemaker or ICD? When Was Last Pacemaker Check QUESTION #4 FULL TEXT: You/Your Family Experience fever (hyperthermia) with Anesthesia Last Oral Intake Last Oral intake: Last Oral Intake NPO since Meds taken in AM with sips of water? Meds patient instructed to take am of surgery PONV PONV - alarm signaler: PONV - alarm signaler Female No 01/20/24 13:18 HX of Motion Sickness No 01/20/24 13:18 HX of N/V After Surgery No 01/20/24 13:18 Non-Smoker Yes 01/20/24 13:18 Duration of Surgery greater No 01/20/24 13:18 than 60 minutes Number of Risk Factors 1 01/20/24 13:18 PONV Score Low Risk 01/20/24 13:18 Height & Weight Height & Weight: Anesthesia: Height & Weight Height 5 ft 10 in 12/21/23 09:32 Respiratory Assessment Respiratory Assessment - alarm signaler: Respiratory Tract Infection Hx - alarm signaler Hx Respiratory Tract Infection No 01/20/24 13:18 STOP Sleep Apnea STOP Sleep Apnea - alarm signaler: STOP Sleep Apnea - alarm signaler Hx Hypertension No 01/20/24 13:18 Hx Sleep Apnea No 01/20/24 13:18 CPAP BIPAP Do you snore loudly (louder Yes 01/20/24 13:18 than talking or can be heard Do you often feel tired/ No 01/20/24 13:18 fatigued/ sleepy during daytime? Has anyone observed you stop No 01/20/24 13:18 breathing during sleep? STOP Results Negative 01/20/24 13:18 QUESTION #5 FULL TEXT : Do you snore loudly (louder than talking or can be heard through closed doors)? Tobacco Use History Tobacco Use History - alarm signaler: Tobacco Use History - alarm signaler Tobacco Use Smoking Status Former smoker 01/20/24 13:18 Hx Tobacco Use Yes 01/20/24 13:18 Years Smoking Packs Smoked per Day Smoking Cessation Date was Yes - quit smoking within 15 01/20/24 13:18 within the last 15 years years Hx Smoking Cessation Date 04/19/23 01/20/24 13:18 Hx Smoking Cessation date quit unknown 01/20/24 13:18 Counseling Hematologic Medial History Hematologic Hx - alarm signaler: Hematologic Medical Hx - capacitor inspector Hx of Blood Transfusion No 01/20/24 13:18 Hx of Transfusion in last 3 No 01/20/24 13:18 Months Date of Last Transfusion (if within last 3 months) Ever experience any problems No 01/20/24 13:18 with transfusion(s)? Specify any problems Hx of Preganancy in last 3 N/A 01/20/24 13:18 Months Nurse Filling Out Transfusion NBUCHER 01/20/24 13:18 & Questions: Date: 01/20/24 01/20/24 13:18 Time: 13:21 01/20/24 13:18 Patient unable to answer at this time (ie. confused, unrespo /Reproduction History /Reproductive History - alarm signaler: /Reproductive Hx- alarm signaler Hx Now No 01/20/24 13:18 Gestational Age (in weeks): EDC: Hx Hx Para Hx Section SAB No 01/20/24 13:18 Active Medications Active Medications: Current Medications Generic Name Dose Route Start Last Admin Trade Name Freq PRN Reason Stop Dose Admin Lactated Ringer's 1,000 mls @ 15 mls/hr 01/22/24 09:15 IV .Q48H GILBERT PFSH Medical History Wears contact lenses Wears glasses Alcohol use Psoriasis Heartburn Former smoker History of atrial fibrillation History of stress test History of echocardiogram Cardiology follow-up encounter GERD (gastroesophageal reflux disease) Psoriatic arthritis Nicotine dependence KIMBER (obstructive sleep apnea) Hyperlipidemia New onset atrial fibrillation (07/13/19) Near syncope Home Medications ?Medication ?Instructions ?Recorded ?Last Taken ?Type calcipotriene 0.005 % topical 1 applic topical DAILY 03/18/21 Unknown History ointment clobetasol 0.05 % topical cream 1 applic topical DAILY 03/18/21 Unknown History apremilast 30 mg tablet (Otezla) 30 mg PO BID 01/25/22 Unknown History metoprolol tartrate 25 mg tablet 12.5 mg PO QHS PRN AFIB 01/20/24 Unknown History Allergy/AdvReac Type Severity Reaction Status Date / Time cat dander (cats) Allergy nasal Verified 01/20/24 13:16 congestion Family History Brother Psoriasis A-fib Father Brain aneurysm Surgical History History of colonoscopy H/O arthroscopy of left knee Social History household members: significant other and children number of children: 1 current occupational status: unemployed Smoking Status: Former smoker quit date: 07/23/19 alcohol intake: former substance use type: does not use Review of Systems (Anesthesia) ROS Narrative System reviewed and no additional complaints, except as documented.
[2024-01-22] MEDS: Lactated Ringers 1,000 ML 15 ML IV (09:37)
--- NOTE | 2024-01-22 10:24 | H&P.OPEN ---
HPI - General HPI Narrative DANIEL PAZ, is a 48 M who presents for screening colonoscopy. Patient has never had a colonoscopy in the past. He denies abdominal pain or blood in the stool. No family history of colon cancer. [facility] Medical History Wears contact lenses Wears glasses Alcohol use Psoriasis Heartburn Former smoker History of atrial fibrillation History of stress test History of echocardiogram Cardiology follow-up encounter GERD (gastroesophageal reflux disease) Psoriatic arthritis Nicotine dependence KIMBER (obstructive sleep apnea) Hyperlipidemia New onset atrial fibrillation (07/13/19) Near syncope Home Medications ?Medication ?Instructions ?Recorded ?Last Taken ?Type calcipotriene 0.005 % topical 1 applic topical DAILY 03/18/21 Unknown History ointment clobetasol 0.05 % topical cream 1 applic topical DAILY 03/18/21 Unknown History apremilast 30 mg tablet (Otezla) 30 mg PO BID 01/25/22 Unknown History metoprolol tartrate 25 mg tablet 12.5 mg PO QHS PRN AFIB 01/20/24 Unknown History Allergy/AdvReac Type Severity Reaction Status Date / Time cat dander (cats) Allergy nasal Verified 01/22/24 09:35 congestion Family History Brother Psoriasis A-fib Father Brain aneurysm Surgical History History of colonoscopy H/O arthroscopy of left knee Social History household members: significant other and children number of children: 1 current occupational status: unemployed Smoking Status: Former smoker quit date: 07/23/19 alcohol intake: former substance use type: does not use Past Medical/Surgical History Planned Operation Planned Operative Procedure(s): CSCOPE Previous Hospitalizations/Surgeries HX Hospitalizations: No Any Problems With Anesthesia: No You/Your Family Experience Fever (Hyperthermia) With Anes: No Cholinesterase deficiency: No Cardiovascular Hx Hypertension: No Respiratory Hx Sleep Apnea: No Hx Respiratory Tract Infection/Cold (presently): No Do You Snore Loudly (louder than talking or can be heard): Yes Do You Often Feel Tired/ Fatigued/ Sleepy Dring Daytime?: No Has Anyone Observed You Stop Breathing During Sleep?: No Result (for STOP score): Negative Smoking Status: Former smoker Neurological Does patient have nerve stimulator: No Reproduction : No Psycho/Social Hx Alcohol Use: Yes Miscellaneous Recent Exposure to Contagious Disease: No Allergies cat dander (cats) Allergy (Verified 01/22/24 09:35) nasal congestion Discharge Is Pt Admitted From a Custodial, or a Correction: No After D/C, Where Do you Plan to Go: Return Home Vital Signs Vital Signs Vital Signs: 01/22/24 09:38 01/22/24 09:38 Temperature 98.1 F Temperature Source Temporal Pulse Rate 84 Respiratory Rate 16 Respiratory Pattern Normal Blood Pressure 118/82 H Blood Pressure Mean 94 Blood Pressure Source Monitor Blood Pressure Position Semi-Fowlers Blood Pressure Location Left Arm Pulse Ox 99 Oxygen Delivery Method Room Air Weight Weight: 199 lb 1.239 oz Body Mass Index (BMI) 28.5 Physical Exam Const alert and oriented x3 HEENT normocephalic Eyes PERRL Resp normal respiratory effort and normal air movement Cardio regular rate and regular rhythm GI soft to palpation, non-tender and non-distended Extremity normal to inspection Assessment & Plan Assessment/Plan (1) Encounter for screening for malignant neoplasm of colon: PLAN: I explained endoscopy in detail to the patient. I explained the risks including but not limited to stroke or heart attack with anesthesia, perforation of the GI tract, bleeding, infection. I explained that any of these could necessitate further emergency surgery. The patient understands and all questions were answered sufficiently. The patient wishes to proceed with procedure. Marty Romo MD Pager: [facility] [address] [place] [address], [address] [place] [address] Office: Surgery Risks - Colonoscopy Risks Include but are not Limited To: Risks include but are not limited to: Bleeding, perforation requiring further surgery, inability to complete colonoscopy requiring barium enema.
--- NOTE | 2024-01-22 11:16 | OP.CCLET_ITS ---
01/22/2024 Bryn Carrion [address] [address] [place] [address] Re : Colonoscopy procedure for Bryn Lira Dear Dr. Carrion This procedure was performed on Monday, January 22, 2024. My impressions and recommendations are as follows: Impressions : - The entire examined colon is normal on direct and retroflexion views. - No specimens collected. Recommendations : - Discharge patient to home. - Resume previous diet. - Continue present medications. - Repeat colonoscopy in 10 years for screening purposes. My findings are described in the full procedure note, which is enclosed. If I can be of further assistance, please feel free to contact me at Doctor phone number(s): , Work: . Sincerely, Marty Romo MD 01/22/2024 11:15:34 AM This report has been signed electronically.
--- NOTE | 2024-01-22 11:16 | OP.COLON_ITS ---
Patient Name: Bryn Lira Procedure Date: 01/22/2024 10:27 AM Date of : 1975 Age: 48 Procedure: Colonoscopy Indications: Screening for colorectal malignant neoplasm Providers: Marty Romo MD Medicines: Propofol per Anesthesia Patient Profile: This is a 48 year old male. Refer to note in patient chart for documentation of history and physical. Last Colonoscopy: none. The patient's first colonoscopy is today. Complications: No immediate complications. Procedure: Pre-Anesthesia Assessment: - Prior to the procedure, a History and Physical was performed, and patient medications and allergies were reviewed. The patient's tolerance of previous anesthesia was also reviewed. The risks and benefits of the procedure and the sedation options and risks were discussed with the patient. All questions were answered, and informed consent was obtained. Prior Anticoagulants: The patient has taken no anticoagulant or antiplatelet agents. After reviewing the risks and benefits, the patient was deemed in satisfactory condition to undergo the procedure. After I obtained informed consent, the scope was passed under direct vision. Throughout the procedure, the patient's blood pressure, pulse, and oxygen saturations were monitored continuously. The Colonoscope was introduced through the anus and advanced to the cecum, identified by appendiceal orifice and ileocecal valve. The colonoscopy was performed without difficulty. The patient tolerated the procedure well. The quality of the bowel preparation was good. The ileocecal valve, appendiceal orifice, and rectum were photographed. Scope In: 10:59:04 AM Scope Withdrawal Time 0 hours 6 minutes 6 seconds Scope Out: 11:12:28 AM Total Procedure Duration Time 0 hours 13 minutes 24 seconds Findings: The entire examined colon appeared normal on direct and retroflexion views. Impression: - The entire examined colon is normal on direct and retroflexion views. - No specimens collected. Recommendation: - Discharge patient to home. - Resume previous diet. - Continue present medications. - Repeat colonoscopy in 10 years for screening purposes. Procedure Code(s): --- Professional --- 28014, Colonoscopy, flexible; diagnostic, including collection of specimen(s) by brushing or washing, when performed (separate procedure) Diagnosis Code(s): --- Professional --- Z12.11, Encounter for screening for malignant neoplasm of colon CPT copyright 2021 [employer]. All rights reserved. The codes documented in this report are preliminary and upon aviation engineer review may be revised to meet current compliance requirements. Marty Romo MD 01/22/2024 11:15:34 AM This report has been signed electronically. Number of Addenda: 0 Note Initiated On: 01/22/2024 10:27 AM
--- NOTE | 2024-01-22 11:19 | PCM.POST.ANE ---
Anesthesia: Postop Eval I Current Vital Signs Temperature: 97.6 F Pulse Rate: 79 Blood Pressure: 110/72 Respiratory Rate: 16 Pulse Ox: 97 Oxygen Delivery Method: Room Air Assessment Airway patent: Yes Spontaneous unlabored respirations: Yes Mental status: Asleep nausea: No Vomiting: No Anesthesia Complication: No Fluid Hydration Crystalloid volume administer (ml): 900 Total IV fluid infused: 900 Progress Note Anesthesia document: Postop Eval 1 completed: Yes
--- NOTE | 2024-01-22 15:40 | PCM.POSTANE2 ---
Anesthesia Postop Eval I Sum Postop Eval Completion status Anesthesia document: Postop Eval 1 completed: Yes Anesthesia Postop Eval I Summary Anesthesia Postop Eval I Summary: Anesthesia Postop Eval I: Assessment Summary Airway patent Yes 01/22/24 11:20 [email or web address] Spontaneous unlabored Yes 01/22/24 11:20 [email or web address] respirations Mental status Asleep 01/22/24 11:20 [email or web address] nausea No 01/22/24 11:20 [email or web address] Vomiting No 01/22/24 11:20 [email or web address] Anesthesia Postop Eval I: Fluid Summary Crystalloid volume administer 900 01/22/24 11:20 [email or web address] (ml) Colloids volume administered ( ml) Blood Product volume administered (ml) Total IV fluid infused 900 01/22/24 11:20 [email or web address] Anesthesia Postop Eval I: Summary Notes Anesthesia Complication No 01/22/24 11:20 [email or web address] Anesthesia Complication Comment: Post-operative progress note Anesthesia: Postop Eval II Evaluation Mental status: Awake Pain Level: 0 nausea: No Vomiting: No
== END 2024-01-22 11:58 | disposition home or self-care (01) ==
LOC: EN 09:01 → AC 09:03
PROVIDERS: PCP Family Medicine; Referring Provider Family Medicine; Visit Provider Surgery
PROC: 0DJD8ZZ Inspection of Lower Intestinal Tract, Via Natural or Artificial Opening Endoscopic (ICD-10-PCS; CPT 45378; principal; 2024-01-22 10:25)
DX: Z12.11 Encounter for screening for malignant neoplasm of colon (principal); I48.91 Unspecified atrial fibrillation; G47.33 Obstructive sleep apnea (adult) (pediatric); Z79.899 Other long term (current) drug therapy; Z87.891 Personal history of nicotine dependence
CPT/HCPCS: 45378; J7120; J2405

== ENCOUNTER → 2024-07-18 | Outpatient (CLI) | payer MEDICAID, SELFPAY ==
[2024-07-18 18:06] LABS: Anion Gap 12 (5-15); BUN 7 mg/dL (4-19); BUN/Creat Ratio 7.1 RATIO (10-20); Calcium,Total 9.6 mg/dL (7.6-11.0); Carbon Dioxide 23.1 mmol/L (21.0-32.0); Chloride 101 mmol/L (98-108); Cholesterol 203 mg/dL (<=200); EST Glomerular Filtration Rate 92 (>60); Glucose 84 mg/dL (70-99); High Density Lipoprotein 40 mg/dL; Low Density Lipoprotein Calc. 136 mg/dL; Potassium 3.8 mmol/L (3.3-5.1); Sodium Level 136 mmol/L (133-145); Triglycerides 132 mg/dL; Very Low Density Lipoprotein 26 mg/dL (5-40); cholesterol:hdl ratio screen 5.04
[2024-07-18 18:39] LABS: Hematocrit 44.8 % (40-54); Hemoglobin 15.8 g/dL (13.0-16.5); Mean Corp Hgb Conc 35.3 g/dL (32-36); Mean Corpuscular Volume 90.9 fL (80-94); Mean Platelet Vol. 12.1 fl (6.2-12.0); Platelet Count 222 K/mm3 (150-450); RBC Distribution Width CV 12.5 % (11.6-14.6); RBC Distribution Width SD 41.1 fl (35.1-43.9); Red Blood Count 4.93 M/mm3 (4.6-6.2)
== END | disposition home or self-care (01) ==
LOC: MFPLAB 16:13
PROVIDERS: PCP Family Medicine
DX: L40.50 Arthropathic psoriasis, unspecified (principal)
CPT/HCPCS: 36415; 80048; 80061; 85027

== ENCOUNTER → 2025-05-05 | Outpatient (CLI) | payer OTHER, SELFPAY ==
--- OUTSIDE RECORDS SUMMARY | 2025-05-05 11:43 | XMS RPT_ITS | CCD ---
Author Organization [facility] Care Team Providers Care Hat Conditioner Name Role Phone Unavailable Primary Care Provider Daniel Castillo MD Primary Care Provider SHARDA ECKERT Attending Unavailable DANIEL CARRION Referring Unavailable DANIEL CARRION Primary Care Unavailable SHARDA ECKERT Referring Unavailable DANIEL CARRION Primary Care Unavailable Daniel Cariron Primary Care Unavailable [place]orrow MAINTENANCE MANAGER, Terrance Attending Unavailable Tianna Land Attending Unavailable Daniel Carrion Primary Care Unavailable Daniel Carrion Primary Care Unavailable Daniel Carrion Attending Unavailable Daniel Carrion Referring Unavailable Marty Romo Consulting Unavailable Marty Romo Attending Unavailable Daniel Carrion Primary Care Unavailable Daniel Carrion Primary Care Unavailable Marty Romo Attending Unavailable Daniel Carrion Referring Unavailable Marty Romo Attending Unavailable Daniel Carrion Primary Care Unavailable Dr. Daniel Carrion MD [facility] MAINTENANCE [facility]NAGER-Terrance Stuart Attending Provider DANIEL CARRION MD Primary Care Unavailable GIL SANTAMARIA MD Attending Unavail DR DAWOOD De Oliveira MD Attending UnavailDANIEL Lopez MD Primary Care Unavailable Allergies Allergy Classification Reported Allergen(s) Allergy Type Date of Onset Reaction(s) Facility (1 source) cat dander Drug allergy (disorder) 01-22-2024 [facility] Repository Medications Current Medications Medication Drug Class(es) Dates Sig (Normalized) Sig (Original) apremilast 30 mg oral tablet (5 sources) Start: 01-25-2022 take 1 tablet by mouth twice daily OTEZLA 30 mg tablet Take 30 mg by mouth two times a day. 01/07/2024 Active calcipotriene 0.00737 mg/mg topical ointment (7 sources) Vitamin D Analog Start: 03-18-2021 calcipotriene (DOVONEX) 0.005 % oint APPLY OINTMENT DAILY TO AFFECTED LESION 12/09/2023 Active Start: 06-06-2010 DOVONEX 0.005 % TOPICAL cream Apply to psoriasis as needed for resolution - dispense three tubes for each refill 120 g 3 06/06/2010 Active clobetasol propionate 0.5 mg/ml topical cream (5 sources) Corticosteroid Start: 12-09-2023 clobetasol (TE MOVATE) 0.05 % cream APPLY CREAM TO AFFECTED AREAS DAILY TO TWICE DAILY DIRECTED 12/09/2023 Active Start: 03-18-2021 Clobetasol 0.0 5 % cream Active 1 NMA TOPICAL DAILY March 18, 2021 1:00am metoprolol tartrate 25 mg oral tablet (20 sources) beta-Adrenergic Aisha Start: 01-20-2024 Metopr olol Tartrate 25 mg tablet Active 12.5 mg PO AT BEDTIME as needed for AFIB January 20, 2024 12:00am Start: 01-25-2022 End: 01-20-2024 take 1 tablet by mouth twice daily Metoprolol Tartrate 50 mg tablet Discontinued 50 mg PO TWICE A DAY 60 January 25, 2022 12:00am January 20, 2024 1:17pm Start: 03-16-2020 End: 03-18-2021 take 1 tablet by mouth twice daily Metoprolol Tartrate 25 mg tablet Discontinued 25 mg PO TWICE A DAY March 16, 2020 1:00am March 18, 2021 9:37am Start: 12-01-2019 End: 03-16-2020 Metoprolol Tartrate 50 mg ta blet Discontinued 25 mg PO TWICE A DAY 60 December 01, 2019 4:29pm March 16, 2020 12:00pm Start: 12-01-2019 End: 03-16-2020 take 25 mg by mouth twice daily Metoprolol Tartrate Di scontinued 25 MG PO TWICE A DAY 60 December 01, 2019 4:29pm March 16, 2020 12:00pm Start: 07-29-2019 End: 12-01-2019 take 1 tablet by mouth twice daily Metoprolol Tartrate 50 mg tablet Discontinued 50 mg PO TWICE A DAY 60 August 02, 2019 2:07pm December 01, 2019 4:29pm multivitamins(DAILY MULTIVIT PETERSON TAB) (2 sources) Start: 07-21-2008 multivitamins( DAILY MULTIVITAMIN TAB) Take one(1) tablet daily. 0 07/21/2008 Active Completed/Discontinued Medications Medication Drug Class(es) Dates Sig (Normalized) Sig (Original) ascorbic acid 1000 mg oral tablet (4 sources) Vitamin C Start: 03-18-2021 End: 12-21-2023 take 1 g by mouth once daily Ascorbic Acid (Vitamin C) 1,000 mg tablet Discontinued 1 g PO DAILY March 18, 2021 1:00am December 21, 2023 9:29am Start: 03-18-2021 take 1 g by mouth once daily A scorbic Acid (Vitamin C) Active 1 GM PO DAILY March 18, 2021 1:00am cholecalciferol 0.125 mg oral tablet (4 sources) Vitamin D Start: 03-18-2021 End: 12-21-2023 take 1 tablet by mouth once daily Cholecalciferol (Vitamin D3) 125 mcg (5,000 unit) tablet Discontinued 125 ug PO DAILY March 18, 2021 1:00am December 21, 2023 9:29am rivaroxaban 15 mg oral tablet (8 sources) Factor Xa Inhibitor Start: 08-02-2019 End: 03-18-2021 take 1 tablet by mouth once daily Rivaroxaban 15 mg tablet Discontinued 15 mg PO DAILY August 02, 2019 2:22pm March 18, 2021 9:37am Start: 07-29-2019 End: 08-02-2019 take 1 tablet by mouth twice daily Rivaroxaban 15 MG tablet Discontinued 15 mg PO TWICE A DAY July 29, 2019 12:00am August 02, 2019 2:23pm simvastatin 20 mg oral tablet (4 sources) HMG-CoA Reductase Inhibitor Start: 08-09-2019 End: 03-16-2020 take 1 tablet by mouth at bedtime Simvastatin 20 mg tablet Discontinued 20 mg PO AT BEDTIME August 09, 2019 12:00am March 16, 2020 12:01pm Problems Active Problems Problem Classification Problem Date Documented Da te Episodic/Chronic Acquired foot deformities (1 source) Hallux valgus (acquired), left foot; Translations: [Hallux valgus (acquired)] 01-28-2024 Chronic Cardiac dysrhythmias (9 sources) Atrial fibrillation; Translations: [Unspecified atrial fibrillation] Onset: 07-13-2019 03-15-2020 Chronic Cardiac dysrhythmias (4 sources) Palpitations; Translations: [Palpitations] 03-15-2020 Episodic Disorders of lipid metabolism (4 sources) Hyperlipidemia; Translations: [Hyperlipidemia, unspecified] 08-02-2019 Chronic Open wounds of extremities (1 source) Laceration without foreign body, unspecified lower leg, initial encounter; Translations: [Laceration without foreign body, unspecified lower leg, initial encounter] Onset: 02-06-2025 Episodic Other connective tissue disease (1 source) Plantar fasciitis; Translations: [Plantar fascial fibromatosis] 01-28-2024 Episodic Other connective tissue disease (1 source) Pain in both feet; Translations: [Pain in right foot] 01-28-2024 Episodic Other inflammatory condition of skin (4 sources) Psoriatic arthritis; Translations: [Arthropathic psoriasis, unspecified] 03-18-2021 Chronic Other inflammatory condition of skin (2 sources) Psoriasis; Translations: [Psoriasis, unspecified] Onset: 06-06-2010 06-06-2010 Chronic Other inflammatory condition of skin (1 source) Arthropathic psoriasis, unspecified; Translations: [Arthropathic psoriasis, unspecified] Onset: 07-28-2024 Chronic Past or Other Problems Problem Classification Problem Date Documented Da te Episodic/Chronic Other screening for suspected conditions (not mental disorders or infectious disease) (3 sources) Encounter for screening for malignant neoplasm of colon; Translations: [Patient encounter status] Onset: 01-25-2024 12-21-2023 Episodic Results Test Name Value Interpretation Reference Range Facility .Auto Diffon 07-25-2024 Basophil, Absolute 0.1 10 3/mcL Normal 0.0-0.2 [facility] Comment on above: Performed By: #### C BC, ANEU, MG, ADHELEN, ANNETTE, W, GFR #### [id number] [place], [place] [address] Basophils/100 WBC (Bld) 0.5 % Normal 0.0-2.5 [facility] Comment on above: Performed By: #### C BC, ANEU, MG, ADHELEN, BMP, MDW, GFR #### [address] [address] Eosinophil, Absolute 0.1 10 3/mcL Normal 0.0-0.7 [facility] Comment on above: Performed By: #### C BC, ANEU, MG, ADIFF, BMP, MDW, GFR #### [address] [address] Eosinophils/100 WBC (Bld) 0.9 % Normal 0.0-7.0 [facility] Comment on above: Performed By: #### C BC, ANEU, MG, ADIFF, BMP, MDW, GFR #### [address] [address] Lymphocyte, Absolute 3.6 10 3/mcL Normal 0.9-4.3 [facility] Comment on above: Performed By: #### C BC, ANEU, MG, ADIFF, BMP, MDW, GFR #### [address] [address] Lymphocytes/100 WBC (Bld) 35.7 % Normal 20.0-40.0 [facility] Comment on above: Performed By: #### C BC, ANEU, MG, ADIFF, BMP, MDW, GFR #### [address] [address] Monocyte, Absolute 0.6 10 3/mcL Normal 0.1-1.4 [facility] Comment on above: Performed By: #### C BC, ANEU, MG, ADIFF, BMP, MDW, GFR #### [address] [address] Monocytes/100 WBC (Bld) 6.1 % Normal 2.0-13.0 [facility] Comment on above: Performed By: #### C BC, ANEU, MG, ADIFF, BMP, MDW, GFR #### [address] [address] Neutrophils/100 WBC (Bld) 56.8 % Normal 50.0-75.0 [facility] Comment on above: Performed By: #### C BC, ANEU, MG, ADIFF, BMP, MDW, GFR #### [address] [address] .GFRon 07-25-2024 Estimated Glomerular Filtration Rate 80 ml/min/1.73sqm Normal [facility] Comment on above: Result Comment: Stages of Chronic Kidney Disease (CKD) Stage Description eGFR(ml/min/1.73 sq.m.) CKD 1 Normal kidney function or >=90 normal kindney function with possible kidney damage (ex. Proteinuria) CKD 2 Kidney damage with mild loss 60-89 of kidney function CKD 3a Mild to moderate loss of kidney 45-59 function CKD 3b Moderate to severe loss of 30-44 of kindey function CKD 4 Severe loss of kidney function 15-29 CKD 5 Kidney failure <15 Note: (go live 2024) the eGFR calculation was updated to the 2020 CKD-EPI creatinine equation without a race factor to calculate the eGFR results. Performed By: #### C BC, ANEU, MG, ADIFF, BMP, MDW, GFR #### [place] [address] .MDWon 07-25-2024 Monocyte Distribution Width 19.70 Normal 0.00-20.00 [facility] Comment on above: Result Comment: For ED adult patients suspected of sepsis, MDW<=20.0 does not rule out sepsis or risk of sepsis Performed By: #### C BC, ANEU, MG, ADIFF, BMP, MDW, GFR #### [address] [address] .NEUABSon 07-25-2024 Neutrophil, Absolute 5.7 10 3/mcL Normal 2.3-8.1 [facility] Comment on above: Performed By: #### C BC, ANEU, MG, ADIFF, BMP, MDW, GFR #### [place] [address] BMPon 07-25-2024 BUN/Creatinine Ratio 9 ratio Normal 7-27 [facility] Comment on above: Performed By: #### C BC, ANEU, MG, ADIFF, BMP, MDW, GFR #### [place] [address] Calcium [Mass/Vol] 9.7 mg/dL Normal 8.4-10.2 [facility] Comment on above: Performed By: #### C BC, ANEU, MG, ADIFF, BMP, MDW, GFR #### [address] [address] Chloride [Moles/Vol] 103 mmol/L Normal 98-107 [facility] Comment on above: Performed By: #### C BC, ANEU, MG, ADIFF, BMP, MDW, GFR #### [address] [address] CO2 [Moles/Vol] 31 mmol/L High 22-29 [facility] Comment on above: Performed By: #### C BC, ANEU, MG, ADIFF, BMP, MDW, GFR #### [address] [address] Creatinine [Mass/Vol] 1.11 mg/dL Normal 0.70-1.30 [facility] Comment on above: Result Comment: Test ing performed on Siemens Dimension EXL analyzer using a modified kinetic Renetta technique. Performed By: #### C BC, ANEU, MG, ADIFF, BMP, MDW, GFR #### [address] [address] Electrolyte Balance 5.0 mEq/L Normal 4.0-15.0 [facility] Comment on above: Performed By: #### C BC, ANEU, MG, ADIFF, BMP, MDW, GFR #### [address] [address] Glucose [Mass/Vol] 95 mg/dL Normal 70-105 [facility] Comment on above: Performed By: #### C BC, ANEU, MG, ADIFF, BMP, MDW, GFR #### [address] [address] Potassium [Moles/Vol] 3.8 mmol/L Normal 3.5-5.1 [facility] Comment on above: Performed By: #### C BC, ANEU, MG, ADIFF, BMP, MDW, GFR #### [address] [address] Sodium [Moles/Vol] 139 mmol/L Normal 136-145 [facility] Comment on above: Performed By: #### C BC, ANEU, MG, ADIFF, BMP, MDW, GFR #### [place] [address] Urea nitrogen [Mass/Vol] 10 mg/dL Normal 7-18 [facility] Comment on above: Performed By: #### C BC, ANEU, MG, ADIFF, BMP, MDW, GFR #### [place] [address] CBCon 07-25-2024 Erythrocyte distribution width (RBC) [Ratio] 13.2 % Normal 11.5-15.5 [facility] Comment on above: Performed By: #### C BC, ANEU, MG, ADIFF, BMP, MDW, GFR #### [place] [address] Hematocrit (Bld) [Volume fraction] 48.4 % Normal 40.0-52.0 [facility] Comment on above: Performed By: #### C BC, ANEU, MG, ADIFF, BMP, MDW, GFR #### [place] [address] Hgb 16.7 G/dL Normal 13.0-17.5 [facility] Comment on above: Performed By: #### C BC, ANEU, MG, ADIFF, BMP, MDW, GFR #### [address] [address] MCH (RBC) [Entitic mass] 31.8 pg Normal 27.0-33.0 [facility] Comment on above: Performed By: #### C BC, ANEU, MG, ADIFF, BMP, MDW, GFR #### [place] [address] MCHC 34.6 G/dL Normal 32.0-36.0 [facility] Comment on above: Performed By: #### C BC, ANEU, MG, ADIFF, BMP, MDW, GFR #### [address] [address] MCV (RBC) [Entitic vol] 91.9 fL Normal 81.0-100.0 [facility] Comment on above: Performed By: #### C BC, ANEU, MG, ADIFF, BMP, MDW, GFR #### [address] [address] Platelet 226 10 3/mcL Normal 150-450 [facility] Comment on above: Performed By: #### C BC, ANEU, MG, ADIFF, BMP, MDW, GFR #### [address] [address] Platelet mean volume (Bld) [Entitic vol] 9.6 fL Normal 6.4-10.5 [facility] Comment on above: Performed By: #### C BC, ANEU, MG, ADIFF, BMP, MDW, GFR #### [address] [address] RBC 5.27 10 6/mcL Normal 4.50-6.00 [facility] Comment on above: Performed By: #### C BC, ANEU, MG, ADIFF, BMP, MDW, GFR #### [address] [address] WBC 10.0 10 3/mcL Normal 4.5-10.8 [facility] Comment on above: Performed By: #### C BC, ANEU, MG, ADIFF, BMP, MDW, GFR #### [address] [address] MGon 07-25-2024 Magnesium [Mass/Vol] 1.9 mg/dL Normal 1.8-2.4 [facility] Comment on above: Performed By: #### C BC, ANEU, MG, ADIFF, BMP, MDW, GFR #### [address] [address] Anion gap in Serum or Plasma Ordered By: Terrance Colon on 07-18-2024 Anion gap [Moles/Vol] 12 mmol/L 5-15 [facility] BUN/creatinine ratioOrdered By: Terrance Martinezorrow on 07-18-2024 Urea nitrogen/Creatinine [Mass ratio] 7.1 mg/mg Low 10-20 [facility] Basic Metabolic Profile (BMP )on 07-18-2024 BUN/CRE 7.1 RATIO Low 10-20 [facility] Comment on above: Order Comment: Order Date: 07/18/24 Order Info: 666- - BMP Order Info: [id number] - LIPID Performed By: #### L 500.2500 #### [facility] [address] [place], [address] Calcium [Mass/Vol] 9.6 mg/dL Normal 7.6-11.0 [facility] Comment on above: Order Comment: Order Date: 07/18/24 Order Info: 666-05 - BMP Order Info: [id number] - LIPID Performed By: #### L 500.2500 #### [facility] [address] [place], [address] Chloride [Moles/Vol] 101 mmol/L Normal 98-108 [facility] [place] [facility] Comment on above: Order Comment: Order Date: 07/18/24 Order Info: 0667- - BMP Order Info: [id number] - LIPID Performed By: #### L 500.2500 #### [facility] [address] [place], [address] CO2 [Moles/Vol] 23.1 mmol/L Normal 21.0-32.0 [facility] Comment on above: Order Comment: Order Date: 07/18/24 Order Info: 06- - BMP Order Info: [id number] - LIPID Performed By: #### L 500.2500 #### [facility] [address] [place], [address] Creatinine [Mass/Vol] 1.00 mg/dL Normal 0.70-1.20 [facility] Comment on above: Order Comment: Order Date: 07/18/24 Order Info: 666-05 - BMP Order Info: - LIPID Performed By: #### L 500.2500 #### [facility] [address] [place], [address] GAP 12 Normal 5-15 [facility] Comment on above: Order Comment: Order Date: 07/18/24 Order Info: 666-05 - BMP Order Info: - LIPID Performed By: #### L 500.2500 #### [facility] [address] [place], [address] GFR/1.73 sq M.predicted among non-blacks MDRD (S/P/Bld) [Vol rate/Area] 92 mL/min/{1.73_m2} Normal >60 [facility] Comment on above: Order Comment: Order Date: 07/18/24 Order Info: 666-05 - BMP Order Info: - LIPID Result Comment: mL/m in/1.73m2 CKD-EPI Creatinine Equation (2020) Performed By: #### L 500.2500 #### [facility] [address] [place], [address] Glucose [Mass/Vol] 84 mg/dL Normal 70-99 [facility] Comment on above: Order Comment: Order Date: 07/18/24 Order Info: 666-05 - BMP Order Info: [id number] - LIPID Performed By: #### L 500.2500 #### [facility] [address] [place], [address] Potassium [Moles/Vol] 3.8 mmol/L Normal 3.3-5.1 [facility] Comment on above: Order Comment: Order Date: 07/18/24 Order Info: 666-05 - BMP Order Info: [id number] - LIPID Performed By: #### L 500.2500 #### [facility] [address] [place], [address] Sodium [Moles/Vol] 136 mmol/L Normal 133-145 [facility] Comment on above: Order Comment: Order Date: 07/18/24 Order Info: 0667-1 - BMP Order Info: [id number] - LIPID Performed By: #### L 500.2500 #### [facility] [address] [place], [address] Urea nitrogen [Mass/Vol] 7 mg/dL Normal 4-19 [facility] Comment on above: Order Comment: Order Date: 07/18/24 Order Info: 0667-1 - BMP Order Info: [id number] - LIPID Performed By: #### L 500.2500 #### [facility] [address] [place], [address] CBC-Complete Blood Cnt No Di ffon 07-18-2024 Erythrocyte distribution width (RBC) [Ratio] 12.5 % Normal 11.6-14.6 [facility] Comment on above: Order Comment: Order Date: 07/18/24Order Info: [id number] - CBC Performed By: #### L 100.0500 ####[facility] [address] [place], [address] Hematocrit (Bld) [Volume fraction] 44.8 % Normal 40-54 [facility] Comment on above: Order Comment: Order Date: 07/18/24Order Info: [id number] - CBC Performed By: #### L 100.0500 ####[facility] [address] [place], [address] Hemoglobin (Bld) [Mass/Vol] 15.8 g/dL Normal 13.0-16.5 [facility] Comment on above: Order Comment: Order Date: 07/18/24Order Info: [id number] - CBC Performed By: #### L 100.0500 ####[facility] [address] [place], [address] MCH (RBC) [Entitic mass] 32.0 pg Normal 27.0-32.0 [facility] Comment on above: Order Comment: Order Date: 07/18/24Order Info: [id number] - CBC Performed By: #### L 100.0500 ####[facility] [address] [place], [address] MCHC (RBC) [Mass/Vol] 35.3 g/dL Normal 32-36 [facility] Comment on above: Order Comment: Order Date: 07/18/24Order Info: [id number] - CBC Performed By: #### L 100.0500 ####[facility] [address] [place], [address] MCV (RBC) [Entitic vol] 90.9 fL Normal 80-94 [facility] Comment on above: Order Comment: Order Date: 07/18/24Order Info: [id number] - CBC Performed By: #### L 100.0500 ####[facility] [address] [place], [address] Platelet mean volume (Bld) [Entitic vol] 12.1 fL High 6.2-12.0 [facility] Comment on above: Order Comment: Order Date: 07/18/24Order Info: [id number] - CBC Performed By: #### L 100.0500 ####[facility] [address] [place], [address] Platelets (Bld) [#/Vol] 222 10*3/uL Normal 150-450 [facility] Comment on above: Order Comment: Order Date: 07/18/24Order Info: [id number] - CBC Performed By: #### L 100.0500 ####[facility] [address] [place], [address] RBC (Bld) [#/Vol] 4.93 10*6/uL Normal 4.6-6.2 [facility] Comment on above: Order Comment: Order Date: 07/18/24Order Info: [id number] - CBC Performed By: #### L 100.0500 ####[facility] [address] [place], [place], [address] RDW SD 41.1 fl Normal 35.1-43.9 [facility] Comment on above: Order Comment: Order Date: 07/18/24Order Info: [id number] - CBC Performed By: #### L 100.0500 ####[facility] [address] [place], [address] WBC (Bld) [#/Vol] 9.0 10*3/uL Normal 4.4-11.0 [facility] Comment on above: Order Comment: Order Date: 07/18/24Order Info: [id number] - CBC Performed By: #### L 100.0500 ####[facility] [address] [place], [address] Calculated very low density lipoprotein (VLDL) cholesterol measurementOrdered By: Terrance Colon on 07-18-2024 VLDL Cholesterol 26 mg/dL 5-40 [facility] Carbon dioxide, total [Moles /volume] in Central venous bloodOrdered By: Terrance Colon on 07-18-2024 CO2 [Moles/Vol] 23.1 mmol/L 21.0-32.0 [facility] Chloride assayOrdered By: Rosey gayle shelby on 07-18-2024 Chloride [Moles/Vol] 101 mmol/L 98-108 [facility] [place] [facility] Erythrocyte distribution wid th ratioOrdered By: Terrance Colon on 07-18-2024 Erythrocyte distribution width (RBC) [Ratio] 12.5 % 11.6-14.6 [facility] Erythrocyte distribution wid th standard deviationOrdered By: Terrance Colon on 07-18-2024 Erythrocyte distribution width (RBC) [Entitic vol] 41.1 fL 35.1-43.9 [facility] GFR/1.73 sq M.predicted elodia g non-blacks MDRD (S/P/Bld) [Vol rate/Area]Ordered By: Terrance Colon on 07-18-2024 Estimated GFR (MDRD) Non-Af Amer 92 >60 [facility] Comment on above: mL/min/1.73m2 CKD-EP I Creatinine Equation (2020) Hematocrit Auto (Bld) [Volum e fraction]Ordered By: Terrance Emanuelshelby on 07-18-2024 Hematocrit (Bld) [Volume fraction] 44.8 % 40-54 [facility] Hemoglobin measurementOrdere d By: Terrance Colon on 07-18-2024 Hemoglobin (Bld) [Mass/Vol] 15.8 g/dL 13.0-16.5 [facility] LDL calc ser/plasOrdered By: Terrance Emanuelshelby on 07-18-2024 LDL Cholesterol, Calculated 136 mg/dL [facility] Comment on above: Eiefoviflx=684-220 m g/dL & Higher Vjdv=172 mg/dL or greater Lipid Profileon 07-18-2024 CHOL:HDL 5.04 Normal [facility] Comment on above: Order Comment: Order Date: 07/18/24Order Info: 0667-1 - BMPOrder Info: [id number] - LIPID Performed By: #### L 500.4100 ####[facility] [address] [place], [place], [address] Cholesterol [Mass/Vol] 203 mg/dL High <=200 [facility] Comment on above: Order Comment: Order Date: 07/18/24Order Info: 0667-1 - BMPOrder Info: [id number] - LIPID Result Comment: Chol esterol level, Desirable <200 mg/dL Borderline high cholesterol 200-239 mg/dL High cholesterol >=240 mg/dL Recommendations of the NCEP Adult Treatment Panel for the following risk-cutoff thresholds for the [place] population. Performed By: #### L 500.4100 ####[facility] [address] [place], [place], [id number] Cholesterol in HDL [Mass/Vol] 40 mg/dL Normal [facility] Comment on above: Order Comment: Order Date: 07/18/24Order Info: 0667-1 - BMPOrder Info: [id number] - LIPID Result Comment: Gillian onal Cholesterol Education Program (NCEP) guidelines: <40 mg/dL: Low HDL-cholesterol (major risk factor for CHD) >= 60 mg/dL: High HDL-cholesterol (negative risk factor for CHD) HDL-cholesterol is affected by a number of factors, e.g. smoking, exercise, hormones, sex and age. Performed By: #### L 500.4100 ####[facility] [address] [place], [place], [phone] Cholesterol in LDL [Mass/Vol] 136 mg/dL Normal [facility] Comment on above: Order Comment: Order Date: 07/18/24Order Info: 0667-1 - BMPOrder Info: [id number] - LIPID Result Comment: Bord ptxqqs=399-114 mg/dL Higher Yfiy=819 mg/dL or greater Performed By: #### L 500.4100 ####[facility] [address] [place], [place], [phone] Cholesterol in VLDL [Mass/Vol] 26 mg/dL Normal 5-40 [facility] Comment on above: Order Comment: Order Date: 07/18/24Order Info: 0667-1 - BMPOrder Info: [id number] - LIPID Performed By: #### L 500.4100 ####[facility] [address] [place], [address] Triglyceride [Mass/Vol] 132 mg/dL Normal [facility] Comment on above: Order Comment: Order Date: 07/18/24Order Info: [id number] - BMPOrder Info: [id number] - LIPID Result Comment: The drugs N-Acetylcysteine and Metamizole may falsely depress this assay. Normal range: <150 mg/dL Borderline High: 150-199 mg/dL High: 200-499 mg/dL Very High: >500 mg/dL Performed By: #### L 500.4100 ####[facility] [address] [place], [address] MCV (mean corpuscular volume ) determinationOrdered By: Terrance Colon on 07-18-2024 MCV (RBC) [Entitic vol] 90.9 fL 80-94 [facility] Mean corpuscular hemoglobin (MCH) determinationOrdered By: Terrance Colon on 07-18-2024 MCH (RBC) [Entitic mass] 32.0 pg 27.0-32.0 [facility] Mean corpuscular hemoglobin concentration (MCHC) determinationOrdered By: Terrance Colon on 07-18-2024 MCHC (RBC) [Mass/Vol] 35.3 g/dL 32-36 [facility] Mean platelet volume determi nationOrdered By: Terrance Colon on 07-18-2024 Platelet mean volume (Bld) [Entitic vol] 12.1 fL High 6.2-12.0 [facility] Platelet countOrdered By: Rosey Colon on 07-18-2024 Platelets (Bld) [#/Vol] 222 10*3/uL 150-450 [facility] Potassium (Unsp spec) [Mass/ Vol]Ordered By: Terrance Colon 07-18-2024 Potassium [Moles/Vol] 3.8 mmol/L 3.3-5.1 [facility] RBC Auto (Bld) [#/Vol]Ordere d By: Terrance Colon on 07-18-2024 RBC (Bld) [#/Vol] 4.93 10*6/uL 4.6-6.2 [facility] Screening total cholesterol/ high density lipoprotein (HDL) cholesterol ratioOrdered By: Terrance Colon 07-18-2024 Cholesterol.total/Cholest mohsen in HDL [Mass ratio] 5.04 {ratio} [facility] Serum creatinine measurement (mass/volume)Ordered By: Terrance Colon 07-18-2024 Creatinine [Mass/Vol] 1.00 mg/dL 0.70-1.20 [facility] Serum glucose measurement (m ass/volume)Ordered By: Terrance Colon 07-18-2024 Glucose [Mass/Vol] 84 mg/dL 70-99 [facility] Serum or plasma calcium chauncey urement (mass/volume)Ordered By: Terrance Colon 07-18-2024 Calcium [Mass/Vol] 9.6 mg/dL 7.6-11.0 [facility] Serum or plasma cholesterol in HDL measurement (mass/volume)Ordered By: Terrance Colon 07-18-2024 Cholesterol in HDL [Mass/Vol] 40 mg/dL >40 [facility] Comment on above: National Cholesterol Education Program (NCEP) guidelines:<40 mg/dL: Low HDL-cholesterol (major risk factor for CHD)>= 60 mg/dL: High HDL-cholesterol (negative risk factor for CHD)HDL-cholesterol is affected by a number of factors, e.g. smoking, exercise, hormones, sex and age. Serum or plasma cholesterol measurement (mass/volume)Ordered By: Terrance Colon on 07-18-2024 Cholesterol [Mass/Vol] 203 mg/dL High <201 [facility] Comment on above: Cholesterol level, D esirable <200 mg/dLBorderline high cholesterol 200-239 mg/dLHigh cholesterol >=240 mg/dLRecommendations of the NCEP Adult Treatment Panel for the following risk-cutoff thresholds for the [place] population. Serum or plasma urea nitroge n measurement (mass/volume)Ordered By: Terrance Colon on 07-18-2024 Urea nitrogen [Mass/Vol] 7 mg/dL 08-27 [facility] Sodium levelOrdered By: Aaliyah Colon on 07-18-2024 Sodium [Moles/Vol] 136 mmol/L 133-145 [facility] Triglycerides measurementOrd ered By: Terrance Colon on 07-18-2024 Triglyceride [Mass/Vol] 132 mg/dL <199 [facility] Comment on above: The drugs N-Acetylcy steine and Metamizole may falsely depress this assay. Normal range: <150 mg/dLBorderline High: 150-199 mg/dLHigh: 200-499 mg/dLVery High: >500 mg/dL White blood cell (WBC) count Ordered By: Terrance Colon on 07-18-2024 WBC (Bld) [#/Vol] 9.0 10*3/uL 4.4-11.0 [facility] CNOVon 01-28-2024 CNOV Office Visit (PODIWS) ---- DANIEL PAZ ([id number]) 1975 M Date Time Provider Department 01/28/24 9:45 AM SHARDA ECKERT During your visit today, we recorded the following information about you: Kirsten Rush RN 01/28/2024 10:14 PM Signed AMB ROOMING INTAKE FLOWSHEET DATA Risk Screening Do you have concerns about personal safety or safety in the home?: No Pain Pain Level: 9 Pain Location: Other: See Comment (bilateral foot) Description: Sore Duration Units: Years Frequency: Intermittent Intervention/Comfor t measure: Relaxation Patient presents with: Left Foot - New, Pain Right Foot - New, Pain Patient presents for bilateral heel pain that can radiate into the arch for a few years. Patient states that the right is worse than the left. Hx of arthritis. Pain is worse in the afternoons after being on his feet often and first thing in the morning. States that he wears custom orthotics, but they are about 3-4 years old. XR prior to appointment. Sharda Eckert 01/28/2024 10:14 PM Signed Consultation requested by Dr. Carrion for an opinion regarding right foot pain. My final recommendations will be communicated back to the requesting physician by way of shared Medical record or letter to requesting physician via US mail. Initial Podiatric Office Visit: Chief Complaint: This 48 year old male who presents with chief complaint:right heel pain HPI Patient presents to clinic for evaluation of right foot Has pain to the right heel. Has been on/off for about 3 years. States the pain is present whenever he is on his foot for long duration. Also has pain when he first wakes up in the morning. Has custom orthotics that are 3-4 years old. Has history of psoriatic arthritis. PAIN EVALUATION 01/28/2024 1028 Pain Level: 9 Pain Location: Other: See Comment bilateral foot Description: Sore Duration Units: Years Frequency: Intermittent Intervention/Comfor t measure: Relaxation No results found for: HBA1C PCP: Daniel Carrion MD PAST MEDICAL HISTORY Diagnosis Date Psoriasis and similar disorders Current Outpatient Medications Medication Sig OTEZLA 30 mg tablet Take 30 mg by mouth two times a day. calcipotriene (DOVONEX) 0.005 % oint APPLY OINTMENT DAILY TO AFFECTED LESION clobetasol (TEMOVATE) 0.05 % cream APPLY CREAM TO AFFECTED AREAS DAILY TO TWICE DAILY DIRECTED multivitamins(DAILY MULTIVITAMIN TAB) Take one(1) tablet daily. DOVONEX 0.005 % TOPICAL cream Apply to psoriasis as needed for resolution - dispense three tubes for each refill (Patient not taking: Reported on 01/28/2024) No current facility-administer ed medications for this visit. ALLERGIES No Known Allergies PAST SURGICAL HISTORY Procedure Laterality Date NONE No family history on file. Social History Tobacco Use Smoking status: Former Current packs/day: 0.00 Types: Cigarettes Quit date: 06/10/2003 Years since quittin.6 Smokeless tobacco: Never Vaping Use Vaping status: Never Used Substance Use Topics Alcohol use: Not Currently Drug use: Not Currently REVIEW OF SYSTEMS GENERAL: Negative for Malaise, significant weight loss, fever RESPIRATORY: Negative for cough, wheezing and shortness of breath CARDIOVASCULAR: Negative for chest pain, leg swelling and palpitations GI: Negative for abdominal discomfort, blood in stools or black stools and change in bowel habits : Negative for dysuria, frequency and incontinence MUSCULOSKELETAL: Negative for joint pain or swelling, back pain, and muscle pain. SKIN: Negative for lesions, rash, and itching. HEMATOLOGY/LYMPHOLO GY Negative for prolonged bleeding, bruising easily, and swollen nodes. ENDOCRINE: Negative for cold or heat intolerance, polyuria, polydipsia and goiter. NEURO: negative Physical Exam: Constitutional: Pt is a well developed 48 year old male who is alert, oriented and cooperative Eyes: Following during examination. No redness or drainage. Respiratory: RR normal and nonlabored. Even breathing. No evidence of distress or shortness of breath. Psychology: Patient is engaged during conversation. Normal affect and mood. Does not appear depressed or anxious during encounter. Vascular: Dorsalis pedis and posterior tibial pulses palpable as b/l Capillary Fill time < 5 seconds to digits 1-5 b/l Skin temperature warm to warm proximal to distal b/l Hair growth present to digits Neurological: intact light touch/epicritic sensation - tinel b/l intact protective sensation no significant neurological deficits Dermatological: Nails 1-5 b/l appear normal. Webspaces clean and dry 1-4 b/l. Skin appears well hydrated and supple. good color, texture, turgor. No open lesions present. No callosities present. Musculoskeletal/Ort hopaedic: Patient has pain to palpation of right plantar medial heel Foot typ (more content not included)... Normal [facility] XR FOOT 3V AP/LAT/OBL BILon 01-28-2024 XR FOOT 3V AP/LAT/OBL ABDIFATAH * * *Final Rep ort* * * DATE OF EXAM: Jan 28 2024 9:34AM WRX 5555 - XR FOOT 3V AP/LAT/OBL ABDIFATAH / PROCEDURE REASON: multiple diagnoses * * * * Physician Interpretation * * * * EXAMINATION: XR FOOT 3V AP/LAT/OBL ABDIFATAH HISTORY: PT STATES HISTORY PSORIATIC ARTHRITIS, PAIN IN BOTH FEET Bilateral foot pain Bilateral foot pain . TECHNIQUE: XR FOOT 3V AP/LAT/OBL ABDIFATAH Laterality: BILATERAL Number of different views (projections): 3 M: XB_1 COMPARISON: RESULT: Moderate to severe left hallux valgus deformity and minimal on the right. Small plantar calcaneal enthesophytes bilaterally. Mild medial midfoot degenerative change bilaterally. No acute fracture or dislocation. There are no bony erosions. IMPRESSION: No radiographic findings of inflammatory arthropathy. Washroom Cleaner: PSCMony Transcribe Date/Time: Feb 02 2024 7:32A Dictated by : AYANA MCDUFFIE MD This examination was interpreted and the report reviewed and electronically signed by: AYANA MCDUFFIE MD on Feb 02 2024 7:34AM EST [id number] Normal [facility] Colonoscopy Reporton 024 Colonoscopy Report [facility] Medical Records Department [address] [place] [id number] Colonoscopy Report MR#: [id number] Acct: [id number] Name: DANIEL PAZ Rep #: [id number] : 1975 48 From: Marty Romo MD PCP: Dr. Daniel Carrion MD Status:[facility] Patient Name: Daniel Paz Procedure Date: 01/22/2024 10:27 AM Date of : 1975 Age: 48 Procedure: Colonoscopy Indications: Screening for colorectal malignant neoplasm Providers: Marty Romo MD Medicines: Propofol per Anesthesia Patient Profile: This is a 48 year old male. Refer to note in patient chart for documentation of history and physical. Last Colonoscopy: none. The patient's first colonoscopy is today. Complications: No immediate complications. Procedure: Pre-Anesthesia Assessment: - Prior to the procedure, a History and Physical was performed, and patient medications and allergies were reviewed. The patient's tolerance of previous anesthesia was also reviewed. The risks and benefits of the procedure and the sedation options and risks were discussed with the patient. All questions were answered, and informed consent was obtained. Prior Anticoagulants: The patient has taken no anticoagulant or antiplatelet agents. After reviewing the risks and benefits, the patient was deemed in satisfactory condition to undergo the procedure. After I obtained informed consent, the scope was passed under direct vision. Throughout the procedure, the patient's blood pressure, pulse, and oxygen saturations were monitored continuously. The Colonoscope was introduced through the anus and advanced to the cecum, identified by appendiceal orifice and ileocecal valve. The colonoscopy was performed without difficulty. The patient tolerated the procedure well. The quality of the bowel preparation was good. The ileocecal valve, appendiceal orifice, and rectum were photographed. Scope In: 10:59:04 AM Scope Withdrawal Time 0 hours 6 minutes 6 seconds Scope Out: 11:12:28 AM Total Procedure Duration Time 0 hours 13 minutes 24 seconds Findings: The entire examined colon appeared normal on direct and retroflexion views. Impression: - The entire examined colon is normal on direct and retroflexion views. - No specimens collected. Recommendation: - Discharge patient to home. - Resume previous diet. - Continue present medications. - Repeat colonoscopy in 10 years for screening purposes. Procedure Code(s): --- Professional --- 60239, Colonoscopy, flexible; diagnostic, including collection of specimen(s) by brushing or washing, when performed (separate procedure) Diagnosis Code(s): --- Professional --- Z12.11, Encounter for screening for malignant neoplasm of colon CPT copyright 2021 [employer]. All rights reserved. The codes documented in this report are preliminary and upon stereotyper helper review may be revised to meet current compliance requirements. Marty Romo MD 01/22/2024 11:15:34 AM This report has been signed electronically. Number of Addenda: 0 Note Initiated On: 01/22/2024 10:27 AM 01/22/24 1115 Date Marty Orellana Signature: Date (if indicated) CC: Dr. Marty Romo MD; Dr. Daniel Carrion MD Date Dictated: 01/22/24 1027 Date Transcribed: Washroom Cleaner: Signed [facility] MR/POSTOP.ANE 01-22-2024 MR/POSTOP.[facility] Medical Records Department [address] [place] [address] Anesthesia Postop Eval I 01/22/24 1119 MR#: [id number] Acct: [id number] Name: DANIEL PAZ Rep #: [id number] : 1975 48 From: Geovanny Butcher PCP: Dr. Daniel Carrion MD Status:[facility] Y Race: C Location: [place] [address] Anesthesia: Postop Eval I Current Vital Signs Temperature: 97.6 F Pulse Rate: 79 Blood Pressure: 110/72 Respiratory Rate: 16 Pulse Ox: 97 Oxygen Delivery Method: Room Air Assessment Airway patent: Yes Spontaneous unlabored respirations: Yes Mental status: Asleep nausea: No Vomiting: No Anesthesia Complication: No Fluid Hydration Crystalloid volume administer (ml): 900 Total IV fluid infused: 900 Progress Note Anesthesia document: Postop Eval 1 completed: Yes 01/22/24 1120 Date Geovanny Orellana Signature: Date CC: Signed [facility] MR/[id number] 01-22-2024 MR/POSTOPAN2 [facility] Medical Records Department [address] [place] [address] Anesthesia Postop Eval II 01/22/24 1540 MR#: [id number] Acct: [id number] Name: DANIEL PAZ Rep #: [id number] : 1975 48 From: Davey Laurent MD PCP: Dr. Daniel Carrion MD Status:[facility] Y Race: C Location: [place] Anesthesia Postop Eval I Sum Postop Eval Completion status Anesthesia document: Postop Eval 1 completed: Yes Anesthesia Postop Eval I Summary Anesthesia Postop Eval I Summary: Anesthesia Postop Eval I: Assessment Summary Airway patent Yes 01/22/24 11:20 [email or web address] Spontaneous unlabored Yes 01/22/24 11:20 [email or web address] respirations Mental status Asleep 01/22/24 11:20 [email or web address] nausea No 01/22/24 11:20 [email or web address] Vomiting No 01/22/24 11:20 [email or web address] Anesthesia Postop Eval I: Fluid Summary Crystalloid volume administer 900 01/22/24 11:20 [email or web address] (ml) Colloids volume administered ( ml) Blood Product volume administered (ml) Total IV fluid infused 900 01/22/24 11:20 [email or web address] Anesthesia Postop Eval I: Summary Notes Anesthesia Complication No 01/22/24 11:20 [email or web address] Anesthesia Complication Comment: Post-operative progress note Anesthesia: Postop Eval II Evaluation Mental status: Awake Pain Level: 0 nausea: No Vomiting: No 01/22/24 1540 Date Davey Laurent MD Cosigner Signature: Date CC: Signed Normal [facility] ANTINUCLEAR ANTIBODIES DIREC Ton 12-22-2023 ROSHAN,DIRECT Negative Normal Negative [facility] Comment on above: Order Comment: Order Date: 12/18/23Order Info: [id number] - ROSHAN Result Comment: Perf ormed at: [facility] [address] [id number] Bright Cutter: Luis Peña PhD, Phone: [phone] Performed By: #### L 501.9910, L100.0100, L501.5200, L500.4050, L506.1000, L500.4100, L3100.5475, L501.6710 ####[facility] [address] [place], [place], [id number] CBC W/Diff, Automatedon 08-0 9-2023 Absolute Lymph 2.59 X10 3/uL Normal 0.83-4.51 [facility] Comment on above: Order Comment: Order Date: 12/18/23 Order Info: [id number] - CBCD Performed By: #### L 501.9910, L100.0100, L501.5200, L500.4050, L506.1000, L500.4100, L3100.5475, L501.6710 #### [facility] [address] [place], [place], [address] Absolute Neut 2.6 X10 3/uL Normal 2.0-7.7 [facility] Comment on above: Order Comment: Order Date: 12/18/23 Order Info: [id number] - CBCD Performed By: #### L 501.9910, L100.0100, L501.5200, L500.4050, L506.1000, L500.4100, L3100.5475, L501.6710 #### [facility] [address] [place], [place], [address] Basophils/100 WBC (Bld) 0.5 % Normal 0-1 [facility] Comment on above: Order Comment: Order Date: 12/18/23 Order Info: [id number] - CBCD Performed By: #### L 501.9910, L100.0100, L501.5200, L500.4050, L506.1000, L500.4100, L3100.5475, L501.6710 #### [facility] [address] [place], [address] Eosinophils/100 WBC (Bld) 2.2 % Normal 0-5 [facility] Comment on above: Order Comment: Order Date: 12/18/23 Order Info: 0184-1 - CBCD Performed By: #### L 501.9910, L100.0100, L501.5200, L500.4050, L506.1000, L500.4100, L3100.5475, L501.6710 #### [facility] [address] [place], [address] Erythrocyte distribution width (RBC) [Ratio] 12.4 % Normal 11.6-14.6 [facility] Comment on above: Order Comment: Order Date: 12/18/23 Order Info: 0184- - CBCD Performed By: #### L 501.9910, L100.0100, L501.5200, L500.4050, L506.1000, L500.4100, L3100.5475, L501.6710 #### [facility] [address] [place], [address] Hematocrit (Bld) [Volume fraction] 47.5 % Normal 40-54 [facility] Comment on above: Order Comment: Order Date: 12/18/23 Order Info: 0184-1 - CBCD Performed By: #### L 501.9910, L100.0100, L501.5200, L500.4050, L506.1000, L500.4100, L3100.5475, L501.6710 #### [facility] [address] [place], [address] Hemoglobin (Bld) [Mass/Vol] 16.2 g/dL Normal 13.0-16.5 [facility] Comment on above: Order Comment: Order Date: 12/18/23 Order Info: 0184-1 - CBCD Performed By: #### L 501.9910, L100.0100, L501.5200, L500.4050, L506.1000, L500.4100, L3100.5475, L501.6710 #### [facility] [address] [place], [address] IG% 0.200 Normal 0.0-0.9 [facility] Comment on above: Order Comment: Order Date: 12/18/23 Order Info: [id number] - CBCD Result Comment: IG% - Immature Granulocytes (promyelocytes, myelocytes and metamyelocytes) > 1% indicates that a LEFT SHIFT is Present. Performed By: #### L 501.9910, L100.0100, L501.5200, L500.4050, L506.1000, L500.4100, L3100.5475, L501.6710 #### [facility] [address] [facility] [place], [address] Lymphocytes/100 WBC (Bld) 44.3 % High 19-41 [facility] Comment on above: Order Comment: Order Date: 12/18/23 Order Info: 0184-1 - CBCD Performed By: #### L 501.9910, L100.0100, L501.5200, L500.4050, L506.1000, L500.4100, L3100.5475, L501.6710 #### [facility] [address] [facility] [place], [address] MCH (RBC) [Entitic mass] 30.8 pg Normal 27.0-32.0 [facility] Comment on above: Order Comment: Order Date: 12/18/23 Order Info: 0184-1 - CBCD Performed By: #### L 501.9910, L100.0100, L501.5200, L500.4050, L506.1000, L500.4100, L3100.5475, L501.6710 #### [facility] [address], [address] MCHC (RBC) [Mass/Vol] 34.1 g/dL Normal 32-36 [facility] Comment on above: Order Comment: Order Date: 12/18/23 Order Info: 0184-1 - CBCD Performed By: #### L 501.9910, L100.0100, L501.5200, L500.4050, L506.1000, L500.4100, L3100.5475, L501.6710 #### [facility] [address] [place], [address] MCV (RBC) [Entitic vol] 90.3 fL Normal 80-94 [facility] Comment on above: Order Comment: Order Date: 12/18/23 Order Info: 0184-1 - CBCD Performed By: #### L 501.9910, L100.0100, L501.5200, L500.4050, L506.1000, L500.4100, L3100.5475, L501.6710 #### [facility] [address] [place], [place], [address] (226 Monocytes/100 WBC (Bld) 7.7 % Normal 0-10 [facility] Comment on above: Order Comment: Order Date: 12/18/23 Order Info: 0184-1 - CBCD Performed By: #### L 501.9910, L100.0100, L501.5200, L500.4050, L506.1000, L500.4100, L3100.5475, L501.6710 #### [facility] [address] [place], [address] Neutrophils/100 WBC (Bld) 45.1 % Low 47-70 [facility] Comment on above: Order Comment: Order Date: 12/18/23 Order Info: 0184-1 - CBCD Performed By: #### L 501.9910, L100.0100, L501.5200, L500.4050, L506.1000, L500.4100, L3100.5475, L501.6710 #### [facility] [address] [place], [address] Nucleated RBC (Bld) [#/Vol] 0 10*3/uL Normal 0-5 [facility] Comment on above: Order Comment: Order Date: 12/18/23 Order Info: 0184-1 - CBCD Performed By: #### L 501.9910, L100.0100, L501.5200, L500.4050, L506.1000, L500.4100, L3100.5475, L501.6710 #### [facility] [address] [place], [address] Platelet mean volume (Bld) [Entitic vol] 11.8 fL Normal 6.2-12.0 [facility] Comment on above: Order Comment: Order Date: 12/18/23 Order Info: 0184- - CBCD Performed By: #### L 501.9910, L100.0100, L501.5200, L500.4050, L506.1000, L500.4100, L3100.5475, L501.6710 #### [facility] [address] [place], [address] Platelets (Bld) [#/Vol] 203 10*3/uL Normal 150-450 [facility] Comment on above: Order Comment: Order Date: 12/18/23 Order Info: 0184- - CBCD Performed By: #### L 501.9910, L100.0100, L501.5200, L500.4050, L506.1000, L500.4100, L3100.5475, L501.6710 #### [facility] [address] [place], [address] RBC (Bld) [#/Vol] 5.26 10*6/uL Normal 4.6-6.2 [facility] Comment on above: Order Comment: Order Date: 12/18/23 Order Info: 0184-1 - CBCD Performed By: #### L 501.9910, L100.0100, L501.5200, L500.4050, L506.1000, L500.4100, L3100.5475, L501.6710 #### [facility] [address] [place], [address] RDW SD 41.2 fl Normal 35.1-43.9 [facility] Comment on above: Order Comment: Order Date: 12/18/23 Order Info: 0184-1 - CBCD Performed By: #### L 501.9910, L100.0100, L501.5200, L500.4050, L506.1000, L500.4100, L3100.5475, L501.6710 #### [facility] [address] [place], [address] WBC (Bld) [#/Vol] 5.8 10*3/uL Normal 4.4-11.0 [facility] Comment on above: Order Comment: Order Date: 12/18/23 Order Info: 0184-1 - CBCD Performed By: #### L 501.9910, L100.0100, L501.5200, L500.4050, L506.1000, L500.4100, L3100.5475, L501.6710 #### [facility] [address] [place], [place], [address] CRPon 12-18-2023 C-REACTIVE PROT < 2.90 Normal 0.0-3.0 [facility] Comment on above: Order Comment: Order Date: 12/18/23Order Info: [id number] - CMPOrder Info: [id number] - LIPIDOrder Info: [id number] - MGOrder Info: [id number] - CRPOrder Info: [id number] - PSA Result Comment: C-Re active Protein (CRP) provides useful information for the diagnosis, therapy and monitoring of inflammatory processes and associated diseases. For the evaluation of Relative Risk for Cardiovascular Disease, a High Sensitivity CRP (HSCRP) should be ordered. Performed By: #### L 501.9910, L100.0100, L501.5200, L500.4050, L506.1000, L500.4100, L3100.5475, L501.6710 ####[facility] [address] [place], [place], [id number] Comprehensive Metabolic Prof ilon 12-18-2023 Albumin [Mass/Vol] 3.9 g/dL Normal 3.2-5.0 [facility] [facility] Comment on above: Order Comment: Order Date: 12/18/23 Order Info: 0786-1 - CMP Order Info: [id number] - LIPID Order Info: [id number] - MG Order Info: [id number] - CRP Order Info: 2857-1 - PSA Performed By: #### L 501.9910, L100.0100, L501.5200, L500.4050, L506.1000, L500.4100, L3100.5475, L501.6710 #### [facility] [address] [place], [place], [id number] Albumin/Globulin [Mass ratio] 1.2 {ratio} Normal 0.9-2.4 [facility] Comment on above: Order Comment: Order Date: 12/18/23 Order Info: 86-1 - CMP Order Info: [id number] - LIPID Order Info: [id number] - MG Order Info: [id number] - CRP Order Info: 285-1 - PSA Performed By: #### L 501.9910, L100.0100, L501.5200, L500.4050, L506.1000, L500.4100, L3100.5475, L501.6710 #### [facility] [address] [place], [place], [id number] ALK P 96 U/L Normal 45-117 [facility] Comment on above: Order Comment: Order Date: 12/18/23 Order Info: 0786-1 - CMP Order Info: [id number] - LIPID Order Info: [id number] - MG Order Info: [id number] - CRP Order Info: 2857-1 - PSA Performed By: #### L 501.9910, L100.0100, L501.5200, L500.4050, L506.1000, L500.4100, L3100.5475, L501.6710 #### [facility] [address] [place], [address] ALT [Catalytic activity/Vol] 49 U/L Normal 16-61 [facility] Comment on above: Order Comment: Order Date: 12/18/23 Order Info: 0786-1 - CMP Order Info: [id number] - LIPID Order Info: [id number] - MG Order Info: [id number] - CRP Order Info: 2856- - PSA Performed By: #### L 501.9910, L100.0100, L501.5200, L500.4050, L506.1000, L500.4100, L3100.5475, L501.6710 #### [facility] [address] [place], [address] AST [Catalytic activity/Vol] 35 U/L Normal 15-37 [facility] Comment on above: Order Comment: Order Date: 12/18/23 Order Info: 86-1 - CMP Order Info: [id number] - LIPID Order Info: [id number] - MG Order Info: [id number] - CRP Order Info: 2856-05 - PSA Performed By: #### L 501.9910, L100.0100, L501.5200, L500.4050, L506.1000, L500.4100, L3100.5475, L501.6710 #### [facility] [address] [place], [place], [id number] Bilirubin [Mass/Vol] 0.50 mg/dL Normal 0.20-1.00 [facility] Comment on above: Order Comment: Order Date: 12/18/23 Order Info: 0786-1 - CMP Order Info: [id number] - LIPID Order Info: [id number] - MG Order Info: [id number] - CRP Order Info: 285-1 - PSA Result Comment: For patients on eltrombopag therapy, use of Dimension Cornell TBIL is not recommended. Performed By: #### L 501.9910, L100.0100, L501.5200, L500.4050, L506.1000, L500.4100, L3100.5475, L501.6710 #### [facility] [address] [place], [place], [phone] BUN/CRE 9.0 RATIO Low 10-20 [facility] Comment on above: Order Comment: Order Date: 12/18/23 Order Info: 0786-1 - CMP Order Info: [id number] - LIPID Order Info: [id number] - MG Order Info: [id number] - CRP Order Info: 2857-1 - PSA Performed By: #### L 501.9910, L100.0100, L501.5200, L500.4050, L506.1000, L500.4100, L3100.5475, L501.6710 #### [facility] [address] [place], [place], [phone] CA,Total 8.8 mg/dL Normal 8.5-10.1 [facility] Comment on above: Order Comment: Order Date: 12/18/23 Order Info: 86-1 - CMP Order Info: [id number] - LIPID Order Info: [id number] - MG Order Info: [id number] - CRP Order Info: 2857-1 - PSA Performed By: #### L 501.9910, L100.0100, L501.5200, L500.4050, L506.1000, L500.4100, L3100.5475, L501.6710 #### [facility] [address] [place], [place], [phone] Chloride [Moles/Vol] 110 mmol/L High 98-107 [facility] Comment on above: Order Comment: Order Date: 12/18/23 Order Info: 0786-1 - CMP Order Info: [id number] - LIPID Order Info: [id number] - MG Order Info: [id number] - CRP Order Info: 2857-1 - PSA Performed By: #### L 501.9910, L100.0100, L501.5200, L500.4050, L506.1000, L500.4100, L3100.5475, L501.6710 #### [facility] [address] [place], [address] CO2 [Moles/Vol] 24.0 mmol/L Normal 21.0-32.0 [facility] Comment on above: Order Comment: Order Date: 12/18/23 Order Info: 86-1 - CMP Order Info: [id number] - LIPID Order Info: [id number] - MG Order Info: [id number] - CRP Order Info: 2856-05 - PSA Performed By: #### L 501.9910, L100.0100, L501.5200, L500.4050, L506.1000, L500.4100, L3100.5475, L501.6710 #### [facility] [address] [place], [address] Creatinine [Mass/Vol] 0.89 mg/dL Normal 0.70-1.30 [facility] Comment on above: Order Comment: Order Date: 12/18/23 Order Info: 785- - CMP Order Info: [id number] - LIPID Order Info: [id number] - MG Order Info: [id number] - CRP Order Info: 2856-05 - PSA Result Comment: The validity of the calculated GFR GFRAA in patients over 70 years has not been determined. Clinical correlation is essential. Performed By: #### L 501.9910, L100.0100, L501.5200, L500.4050, L506.1000, L500.4100, L3100.5475, L501.6710 #### [facility] [address] [place], [place], [id number] EST GFR - AA 116 mL/min Normal >60 [facility] Comment on above: Order Comment: Order Date: 12/18/23 Order Info: 785-1 - CMP Order Info: [id number] - LIPID Order Info: [id number] - MG Order Info: [id number] - CRP Order Info: 285- - PSA Result Comment: Afri can Iranian GFR Calc Performed By: #### L 501.9910, L100.0100, L501.5200, L500.4050, L506.1000, L500.4100, L3100.5475, L501.6710 #### [facility] [address], [address] GAP 6 Normal 5-15 [facility] Comment on above: Order Comment: Order Date: 12/18/23 Order Info: 785-1 - CMP Order Info: [id number] - LIPID Order Info: [id number] - MG Order Info: [id number] - CRP Order Info: 2851 - PSA Performed By: #### L 501.9910, L100.0100, L501.5200, L500.4050, L506.1000, L500.4100, L3100.5475, L501.6710 #### [facility] [address] [place], [address] GFR/1.73 sq M.predicted among non-blacks MDRD (S/P/Bld) [Vol rate/Area] 96 mL/min/{1.73_m2} Normal >60 [facility] Comment on above: Order Comment: Order Date: 12/18/23 Order Info: 785- - CMP Order Info: [id number] - LIPID Order Info: [id number] - MG Order Info: [id number] - CRP Order Info: 2856-05 - PSA Result Comment: Non- GFR Calc Performed By: #### L 501.9910, L100.0100, L501.5200, L500.4050, L506.1000, L500.4100, L3100.5475, L501.6710 #### [facility] [address] [place], [address] Globulin (S) [Mass/Vol] 3.2 g/dL Normal 2.2-4.2 [facility] Comment on above: Order Comment: Order Date: 12/18/23 Order Info: 785- - CMP Order Info: [id number] - LIPID Order Info: [id number] - MG Order Info: [id number] - CRP Order Info: 2851 - PSA Performed By: #### L 501.9910, L100.0100, L501.5200, L500.4050, L506.1000, L500.4100, L3100.5475, L501.6710 #### [facility] [address] [place], [address] Glucose [Mass/Vol] 86 mg/dL Normal 74-106 [facility] Comment on above: Order Comment: Order Date: 12/18/23 Order Info: 785-1 - CMP Order Info: [id number] - LIPID Order Info: [id number] - MG Order Info: [id number] - CRP Order Info: 2856-1 - PSA Performed By: #### L 501.9910, L100.0100, L501.5200, L500.4050, L506.1000, L500.4100, L3100.5475, L501.6710 #### [facility] [address] [place], [address] Potassium [Moles/Vol] 3.9 mmol/L Normal 3.5-5.1 [facility] Comment on above: Order Comment: Order Date: 12/18/23 Order Info: 0786-1 - CMP Order Info: [id number] - LIPID Order Info: [id number] - MG Order Info: [id number] - CRP Order Info: [id number] - PSA Performed By: #### L 501.9910, L100.0100, L501.5200, L500.4050, L506.1000, L500.4100, L3100.5475, L501.6710 #### [facility] [address] [place], [address] Sodium [Moles/Vol] 140 mmol/L Normal 136-145 [facility] Comment on above: Order Comment: Order Date: 12/18/23 Order Info: 0786-1 - CMP Order Info: [id number] - LIPID Order Info: [id number] - MG Order Info: [id number] - CRP Order Info: 1 - PSA Performed By: #### L 501.9910, L100.0100, L501.5200, L500.4050, L506.1000, L500.4100, L3100.5475, L501.6710 #### [facility] [address] [place], [address] T PROT 7.1 g/dL Normal 6.4-8.2 [facility] Comment on above: Order Comment: Order Date: 12/18/23 Order Info: 0786-1 - CMP Order Info: [id number] - LIPID Order Info: [id number] - MG Order Info: [id number] - CRP Order Info: 2856-05 - PSA Performed By: #### L 501.9910, L100.0100, L501.5200, L500.4050, L506.1000, L500.4100, L3100.5475, L501.6710 #### [facility] [address] [place], [address] Urea nitrogen [Mass/Vol] 8 mg/dL Normal 7-18 [facility] Comment on above: Order Comment: Order Date: 12/18/23 Order Info: 0786-1 - CMP Order Info: [id number] - LIPID Order Info: [id number] - MG Order Info: [id number] - CRP Order Info: 28511-08 - PSA Performed By: #### L 501.9910, L100.0100, L501.5200, L500.4050, L506.1000, L500.4100, L3100.5475, L501.6710 #### [facility] [address] [place], [address] Lipid Profileon 12-18-2023 Cholesterol [Mass/Vol] 224 mg/dL High 200 [facility] Comment on above: Order Comment: Order Date: 12/18/23 Order Info: 0786-1 - CMP Order Info: [id number] - LIPID Order Info: [id number] - MG Order Info: - CRP Order Info: 2856-05 - PSA Result Comment: <200 mg/dL Desirable 200-240 mg/dL Borderline >240 mg/dL High Risk Performed By: #### L 501.9910, L100.0100, L501.5200, L500.4050, L506.1000, L500.4100, L3100.5475, L501.6710 #### [facility] [address] [place], [address] Cholesterol in HDL [Mass/Vol] 37 mg/dL Low [facility] Comment on above: Order Comment: Order Date: 12/18/23 Order Info: 0786 - CMP Order Info: [id number] - LIPID Order Info: [id number] - MG Order Info: - CRP Order Info: 2856-05 - PSA Result Comment: The drugs N-Acetylcysteine and Metamizole may falsely depress this assay. Reference Range HDL <40 mg/dL Low HDL Cholesterol HDL >or= 60 mg/dL High HDL Cholesterol Performed By: #### L 501.9910, L100.0100, L501.5200, L500.4050, L506.1000, L500.4100, L3100.5475, L501.6710 #### [facility] [address] [place], [address] Cholesterol in LDL [Mass/Vol] 164 mg/dL High 0-130 [facility] Comment on above: Order Comment: Order Date: 12/18/23 Order Info: 0786- - CMP Order Info: [id number] - LIPID Order Info: [id number] - MG Order Info: - CRP Order Info: 2856-05 - PSA Performed By: #### L 501.9910, L100.0100, L501.5200, L500.4050, L506.1000, L500.4100, L3100.5475, L501.6710 #### [facility] [address] [place], [address] Cholesterol in VLDL [Mass/Vol] 23 mg/dL Normal 5-40 [facility] Comment on above: Order Comment: Order Date: 12/18/23 Order Info: 785- - CMP Order Info: - LIPID Order Info: [id number] - MG Order Info: [id number] - CRP Order Info: 2856-05 - PSA Performed By: #### L 501.9910, L100.0100, L501.5200, L500.4050, L506.1000, L500.4100, L3100.5475, L501.6710 #### [facility] [address] [place], [address] Triglyceride [Mass/Vol] 116 mg/dL Normal [facility] Comment on above: Order Comment: Order Date: 12/18/23 Order Info: [id number] - CMP Order Info: - LIPID Order Info: [id number] - MG Order Info: - CRP Order Info: 2856-05 - PSA Result Comment: The drugs N-Acetylcysteine and Metamizole may falsely depress this assay. Serum Triglycerides Reference Interval Normal <150 mg/dL Borderline high 150 - 199 mg/dL High 200 - 499 mg/dL Very High > or = 500 mg/dL Performed By: #### L 501.9910, L100.0100, L501.5200, L500.4050, L506.1000, L500.4100, L3100.5475, L501.6710 #### [facility] [address] [place], [place], [id number] Magnesiumon 12-18-2023 Magnesium [Mass/Vol] 2.4 mg/dL Normal 1.6-2.6 [facility] Comment on above: Order Comment: Order Date: 12/18/23 Order Info: [id number] - CMP Order Info: - LIPID Order Info: [id number] - MG Order Info: [id number] - CRP Order Info: 2856-05 - PSA Performed By: #### L 501.9910, L100.0100, L501.5200, L500.4050, L506.1000, L500.4100, L3100.5475, L501.6710 #### [facility] [address] [place], [place], [address] PSA,Total - Annual Screenon 12-18-2023 PSA,TOT SCREEN 0.71 ng/mL Normal 0.00-4.00 [facility] Comment on above: Order Comment: Order Date: 12/18/23Order Info: [id number] - CMPOrder Info: [id number] - LIPIDOrder Info: [id number] - MGOrder Info: [id number] - CRPOrder Info: 2857-1 - PSA Result Comment: This test was performed using the TPSA assay method for the [employer] chemistry system. Values obtained with different assay methods cannot be used interchangably. When changing PSA assays in the course of monitoring a patient, additional sequential testing should be carried out to confirm baseline values. Performed By: #### L 501.9910, L100.0100, L501.5200, L500.4050, L506.1000, L500.4100, L3100.5475, L501.6710 ####[facility] [id number] [place], [place], [id number] Vitamin D,25 Hydroxyon 12-17 Vitamin D 25-OH 65.6 ng/mL Normal [facility] Comment on above: Order Comment: Order Date: 12/18/23 Order Info: [id number] - VITD25 Result Comment: Vashti min D 25(OH) Status Range Deficiency <20 ng/mL (50nmol/L) Insufficiency 20 - 30 ng/mL (50 - 75 nmol/L) Sufficiency 30 - 100 ng/mL (75 - 250 nmol/L) Toxicity >100 ng/mL (>250 nmol/L) Performed By: #### L 501.9910, L100.0100, L501.5200, L500.4050, L506.1000, L500.4100, L3100.5475, L501.6710 #### [facility] [address] [place], [place], [id number] Absolute lymphocyte countOrd ered By: Daniel Carrion on 12-11-2022 Lymphocytes Auto (Unsp spec) [#/Vol] 1.84 10*3/uL 0.83-4.51 [facility] Basophil percentageOrdered B y: Daniel Carrion on 12-11-2022 Basophils/100 WBC (Bld) 0.7 % 0-1 [facility] Bilirubin [Mass/Vol] 0.50 mg/dL 0.20-1.00 [facility] Comment on above: For patients on eltr ombopag therapy, use of Dimension Cornell TBIL is not recommended. Chloride [Moles/Vol] 108 mmol/L 98-107 [facility] Eosinophils/100 WBC (Bld) 0.9 % 0-5 [facility] Glucose [Mass/Vol] 94 mg/dL 74-106 [facility] Neutrophils (Bld) [#/Vol] 3.3 10*3/uL 2.0-7.7 [facility] Neutrophils/100 WBC (Bld) 56.5 % 47-70 [facility] Potassium [Moles/Vol] 4.3 mmol/L 3.5-5.1 [facility] Protein [Mass/Vol] 7.4 g/dL 6.4-8.2 [facility] Sodium [Moles/Vol] 139 mmol/L 136-145 [facility] WBC (Bld) [#/Vol] 5.8 10*3/uL 4.4-11.0 [facility] Blood erythrocytes count (nu mber/volume)Ordered By: Daniel Carrion on 12-11-2022 RBC (Bld) [#/Vol] 5.30 10*6/uL 4.6-6.2 [facility] Blood hemoglobin measurement (mass/volume)Ordered By: Daniel Carrion on 12-11-2022 Hemoglobin (Bld) [Mass/Vol] 16.4 g/dL 13.0-16.5 [facility] Blood lymphocytes/100 leukoc ytesOrdered By: Daniel Carrion on 12-11-2022 Lymphocytes/100 WBC (Bld) 32.0 % 19-41 [facility] Blood monocytes/100 leukocyt esOrdered By: Daniel Carrion on 12-11-2022 Monocytes/100 WBC (Bld) 9.6 % 0-10 [facility] Blood platelet mean volumeOr dered By: Daniel Carrion on 12-11-2022 Platelet mean volume (Bld) [Entitic vol] 12.2 fL 6.2-12.0 [facility] Determination of erythrocyte mean corpuscular volume (MCV)Ordered By: Daniel Carrion on 12-11-2022 MCV (RBC) [Entitic vol] 93.2 fL 80-94 [facility] Hematocrit Auto (Bld) [Volum e fraction]Ordered By: Daniel Carrion on 12-11-2022 Hematocrit (Bld) [Volume fraction] 49.4 % 40-54 [facility] - Chemistry and C hemistry - challengeOrdered By: Daniel Carrion on 12-11-2022 ALP [Catalytic activity/Vol] 89 U/L 45-117 [facility] ALT [Catalytic activity/Vol] 47 U/L 16-61 [facility] CO2 [Moles/Vol] 26.0 mmol/L 21.0-32.0 [facility] Globulin (S) [Mass/Vol] 3.5 g/dL 2.2-4.2 [facility] Magnesium [Mass/Vol] 2.4 mg/dL 1.6-2.6 [facility] Urea nitrogen/Creatinine [Mass ratio] 14.3 mg/mg 10-20 [facility] - Hematology and Cell countsOrdered By: Daniel Carrion on 12-11-2022 Erythrocyte distribution width (RBC) [Entitic vol] 42.4 fL 35.1-43.9 [facility] Erythrocyte distribution width (RBC) [Ratio] 12.2 % 11.6-14.6 [facility] Immature granulocytes/100 WBC (Bld) 0.300 % 0.0-0.9 [facility] Comment on above: IG% - Immature Granu locytes (promyelocytes, myelocytes and metamyelocytes) > 1% indicates that a LEFT SHIFT is Present. MCH (RBC) [Entitic mass] 30.9 pg 27.0-32.0 [facility] Nucleated RBC/100 WBC (Bld) [Ratio] 0 % 0-5 [facility] MCHC Auto (RBC) [Mass/Vol]Or dered By: Daniel Carrion on 12-11-2022 MCHC (RBC) [Mass/Vol] 33.2 g/dL 32-36 [facility] No Panel InformationOrdered By: Daniel Carrion on 12-11-2022 Estimated GFR (MDRD) Amer 125 mL/min >60 [facility] Comment on above: GFR Calc Estimated GFR (MDRD) Non-Af Amer 103 mL/min >60 [facility] Comment on above: Non- GFR Calc Thyroid Stimulating Hormone (TSH) 0.84 uIU/mL 0.358-3.74 [facility] Platelets bldOrdered By: Sheri Carrion on 12-11-2022 Platelets (Bld) [#/Vol] 200 10*3/uL 150-450 [facility] Serum or plasma albumin chauncey urement (mass/volume)Ordered By: Daniel Carrion on 12-11-2022 Albumin [Mass/Vol] 3.9 g/dL 3.2-5.0 [facility] Serum or plasma albumin/glob ulin mass ratioOrdered By: Daniel Carrion on 12-11-2022 Albumin/Globulin [Mass ratio] 1.1 {ratio} 0.9-2.4 [facility] Serum or plasma calcium chauncey urement (mass/volume)Ordered By: Daniel Carrion on 12-11-2022 Calcium [Mass/Vol] 9.0 mg/dL 8.5-10.1 [facility] Serum or plasma creatinine m easurement (mass/volume)Ordered By: Daniel Carrion on 12-11-2022 Creatinine [Mass/Vol] 0.84 mg/dL 0.70-1.30 [facility] Comment on above: The validity of the calculated GFR & GFRAA in patients over 70 years has not been determined. Clinical correlation is essential. Serum or plasma urea nitroge n measurement (mass/volume)Ordered By: Daniel Carrion on 12-11-2022 Urea nitrogen [Mass/Vol] 12 mg/dL 7-18 [facility] Thin prep Papanicolaou smear with manual screeningOrdered By: Daniel Carrion on 12-11-2022 Thin prep Papanicolaou smear with manual screening 25 U/L 15-37 [facility] Thin prep Papanicolaou smear with manual screening 5 5-15 [facility] Absolute lymphocyte counton 01-25-2022 Lymphocytes Auto (Unsp spec) [#/Vol] 3.14 10*3/uL 0.83-4.51 [facility] Work Phone: Basophil percentageon 2021 Basophils/100 WBC (Bld) 0.6 % 0-1 [facility] Work Phone: Chloride [Moles/Vol] 105 mmol/L 98-107 [facility] Work Phone: Eosinophils/100 WBC (Bld) 0.2 % 0-5 [facility] Work Phone: Glucose [Mass/Vol] 90 mg/dL 74-106 [facility] Work Phone: [phone] Neutrophils (Bld) [#/Vol] 6.4 10*3/uL 2.0-7.7 [facility] Work Phone: Neutrophils/100 WBC (Bld) 61.9 % 47-70 [facility] Work Phone: [phone] Potassium [Moles/Vol] 3.3 mmol/L 3.5-5.1 [facility] Work Phone: Sodium [Moles/Vol] 141 mmol/L 136-145 [facility] Work Phone: [phone] WBC (Bld) [#/Vol] 10.4 10*3/uL 4.4-11.0 [facility] Work Phone: [phone] Blood erythrocytes count (nu mber/volume)on 01-25-2022 RBC (Bld) [#/Vol] 5.59 10*6/uL 4.6-6.2 [facility] Work Phone: [phone] Blood hemoglobin measurement (mass/volume)on 01-25-2022 Hemoglobin (Bld) [Mass/Vol] 17.7 g/dL 13.0-16.5 [facility] Work Phone: Blood lymphocytes/100 leukoc yteson 01-25-2022 Lymphocytes/100 WBC (Bld) 30.3 % 19-41 [facility] Work Phone: Blood monocytes/100 leukocyt eson 01-25-2022 Monocytes/100 WBC (Bld) 6.7 % 0-10 [facility] Work Phone: Blood platelet mean volumeon 01-25-2022 Platelet mean volume (Bld) [Entitic vol] 12.1 fL 6.2-12.0 [facility] Work Phone: Determination of erythrocyte mean corpuscular volume (MCV)on 01-25-2022 MCV (RBC) [Entitic vol] 91.1 fL 80-94 [facility] Work Phone: Hematocrit Auto (Bld) [Volum e fraction]on 01-25-2022 Hematocrit (Bld) [Volume fraction] 50.9 % 40-54 [facility] Work Phone: Laboratory - Chemistry and C hemistry - challengeon 01-25-2022 CO2 [Moles/Vol] 26.0 mmol/L 21.0-32.0 [facility] Work Phone: Urea nitrogen/Creatinine [Mass ratio] 9.5 mg/mg 10-20 [facility] Work Phone: Laboratory - Hematology and Cell countson 01-25-2022 Erythrocyte distribution width (RBC) [Entitic vol] 40.1 fL 35.1-43.9 [facility] Work Phone: Erythrocyte distribution width (RBC) [Ratio] 12.1 % 11.6-14.6 [facility] Work Phone: Immature granulocytes/100 WBC (Bld) 0.300 % 0.0-0.9 [facility] Work Phone: Comment on above: IG% - Immature Granu locytes (promyelocytes, myelocytes and metamyelocytes) > 1% indicates that a LEFT SHIFT is Present. MCH (RBC) [Entitic mass] 31.7 pg 27.0-32.0 [facility] Work Phone: Nucleated RBC/100 WBC (Bld) [Ratio] 0 % 0-5 [facility] Work Phone: MCHC Auto (RBC) [Mass/Vol]on 01-25-2022 MCHC (RBC) [Mass/Vol] 34.8 g/dL 32-36 [facility] Work Phone: No Panel Informationon 01-25 Estimated Creatinine Clearance Calc 99.23 ml/min [facility] Work Phone: Estimated GFR (MDRD) Amer 109 mL/min >60 [facility] Work Phone: Comment on above: GFR Calc Estimated GFR (MDRD) Non-Af Amer 90 mL/min >60 [facility] Work Phone: Comment on above: Non- GFR Calc Troponin I High Sensitivity 4 pg/mL 3.0-78.0 [facility] Work Phone: Comment on above: Please Note: New Noemi t Units and Gender Specific Reference Ranges. For more information see Policy Stat Procedure [facility] High Sensitivity Troponin (TNIH) and attachments. Platelets bldon 01-25-2022 Platelets (Bld) [#/Vol] 229 10*3/uL 150-450 [facility] Work Phone: Serum or plasma calcium chauncey urement (mass/volume)on 01-25-2022 Calcium [Mass/Vol] 9.8 mg/dL 8.5-10.1 [facility] Work Phone: Serum or plasma creatinine m easurement (mass/volume)on 01-25-2022 Creatinine [Mass/Vol] 0.94 mg/dL 0.70-1.30 [facility] Work Phone: Comment on above: The validity of the calculated GFR & GFRAA in patients over 70 years has not been determined. Clinical correlation is essential. Serum or plasma urea nitroge n measurement (mass/volume)on 01-25-2022 Urea nitrogen [Mass/Vol] 9 mg/dL 7-18 [facility] Work Phone: Thin prep Papanicolaou smear with manual screeningon 01-25-2022 Thin prep Papanicolaou smear with manual screening 10 5-15 [facility] Work Phone: Vital Signs Date Time Vital Sign Value Performing Clinician Faci lity 01-25-2022 16:12-0400 Diastolic blood pressure 78 mm[Hg] [facility] Work Phone: 01-25-2022 16:12-0400 Heart rate 103 /min [facility] Work Phone: 01-25-2022 16:12-0400 Respiratory rate 16 /min [facility] Work Phone: 01-25-2022 16:12-0400 SaO2% (BldA) [Mass fraction] 98 % [facility] Work Phone: 01-25-2022 16:12-0400 Systolic blood pressure 120 mm[Hg] [facility] Work Phone: 01-25-2022 14:31-0400 Body height 177.8 cm [facility] Work Phone: 01-25-2022 14:31-0400 Body mass index (BMI) [Ratio] 29 kg/m2 [facility] Work Phone: 01-25-2022 14:31-0400 Body temperature 97.9 [degF] [facility] Work Phone: 01-25-2022 14:31-0400 Body weight 91.8 kg [facility] Work Phone: Encounters Encounter Date Encounter Type Care Provider Facility Start: 02-06-2025 End: 02-06-2025 Emergency department patient visit DANIEL CARRION MD Facility:[facility] Start: 07-25-2024 End: 07-25-2024 Emergency department patient visit DR DAWOOD DÍAZ MD Facility:[facility] Start: 07-18-2024 End: 07-18-[address] Daniel Carrion MD Work Phone: [facility] Work Phone: Start: 07-18-2024 End: 07-18-2024 Patient encounter procedure Terrance Colon K[facility]STEN-[facility] -Laboratory, [facility] Start: 07-18-2024 End: 07-18-2024 ambulatory Daniel Carrion Facility:[facility] Start: 01-28-2024 End: 01-28-2024 Patient encounter procedure Sharda Eckert Work Phone: Podiatry Comment on above: Plantar fasciitis (P rimary Dx); Hallux valgus of left foot Start: 01-28-2024 End: 01-28-2024 ambulatory SHARDA ECKERT Facility:[facility] Start: 01-28-2024 End: 01-28-2024 Subsequent hospital visit by physician Lindsay [facility] Work Phone: Radiology Comment on above: Bilateral foot pain [M79.671, M79.672] Start: 01-22-2024 End: 01-22-2024 ambulatory Daniel Beaumont Facility:[facility] Start: 12-21-2023 ambulatory [facility] Facility:[facility] [place] Start: 12-18-2023 End: 12-18-2023 ambulatory [facility] Facility:[facility] Start: 01-23-2023 Telephone encounter Mervin smyth MD Work Phone: [facility] Rheumatology Comment on above: new patient appt fro m referral Start: 01-19-2023 End: 01-19-2023 ambulatory [facility] Work Phone: Start: 01-19-2023 End: 01-19-2023 [facility] Start: 12-11-2022 End: 12-11-2022 ambulatory [facility] Work Phone: Start: 12-11-2022 End: 12-11-2022 Patient encounter procedure [facility] Start: 01-25-2022 End: 01-25-2022 Emergency department patient visit [facility]-Emergency Department Procedures Date Procedure Procedure Detail Performing Clinician Start: 01-19-2023 Plain chest X-ray Start: 01-25-2022 Plain chest X-ray Plan of Treatment Date Care Activity Detail Author Start: 01-10-2024 Influenza vaccination Influenza Vaccine (#1) Gillespie Faustinai yoseph Start: 01-25-2022 Blood chemistry [facility] Work Phone: Start: 01-25-2022 End: 01-25-2022 [facility] Work Phone: Start: 2018 Diabetes Screening Diabetes Screening [facility] Start: 2018 Screening for malignant neoplasm of colon [facility] Start: 2008 Lipid panel Lipid Screening [facility] Start: 10-27-1998 Urine microalbumin profile DTaP,Tdap,Td Vaccine (5 - Tdap) [facility] Start: 1992 Hepatitis B Vaccine (1 of 3 - 19+ 3-dose series) Hepatitis B Vaccine (1 of 3 - 19+ 3-dose series) [facility] Start: 1992 Shingrix Vaccine (1 of 2) Shingrix Vaccine (1 of 2) [facility] Start: 1991 Anxiety Screening Anxiety Screening [facility] Start: 1991 Depression Screening Depression Screening [facility] Start: 1991 Hepatitis C screening Hepatitis C Screening [facility] Start: 1991 HIV screening HIV Screening [facility] Start: 1979 Pneumococcal vaccination Pneumococcal Vaccine (1 of 2 - PCV) [facility] Start: 1978 Covid-19 Vaccine (#1) Covid-19 Vaccine (#1) [facility] Patient Education ED AFIB [facility] Work Phone: Patient referral [facility] Work Phone: XR Foot - bilateral AP and Lateral and oblique XR FOOT GENERAL 3V AP/LAT/OBL BILATERAL Radiology Routine Bilateral foot pain 01/28/2024 9:34 AM EDT [facility] Work Phone: Payers Date Payer Category Payer Self-pay [id number] 2023 Medicaid [employer] [id number] 2023-Present [phone] [address] [place] [address] Medicaid [id number] 2023 Medicaid [id number] 2016 Unknown ALMITA [id number] 1973 Unknown [id number] 1973 Unknown [id number] [facility] [id number] Unknown [id number] Unknown [id number] Unknown [id number] Unknown [id number] Unknown [id number] Unknown [id number] Social History Date Type Detail Facility Start: 01-25-2022 [facility] Start: 07-29-2019 Cigarettes [facility] Start: 1975 Sex Assigned At Male [facility] Start: 1975 Sex Assigned At Not on file [facility] Start: 01-28-2024 Gender identity Not on file [facility] Start: 01-22-2024 End: 01-28-2024 Tobacco smoking status NHIS Ex-smoker [facility] End: 06-10-2003 History of tobacco use Current smoker [facility] End: 06-10-2003 History of tobacco use Cigarette Smoker [facility] Start: 01-28-2024 Tobacco use and exposure Smokeless tobacco non-user [facility] Start: 01-28-2024 Alcoholic beverage intake Ex-drinker (finding) [facility] Start: 01-28-2024 History of Social function [facility] National Score (1-100), lower number is lower risk 64 [facility] Start: 07-28-2024 Sex Male (finding) [facility] Mental Status Date Assessment Result Facility 01-25-2022 Cognitive function Voice/Name [facility] Work Phone: Clinical Notes 01-23-2023 to 01-28-2024 Patient InstructionsSharda Eckert - 01/28/2024 10:39 AM EDKirsten Verma RN - 01/28/2024 10:26 AM Cecilio Lunsford RT(R) - 01/28/2024 9:30 AM EDT Note Date & Type Note Facility 01-28-2024 Instructions Sharda Eckert - 01/28/2024 10:46 AM EDT Images from the original note were not included. What is Plantar Fasciitis? Plantar fasciitis is the most common cause of heel pain. The pain is caused by inflammation of the plantar fascia. If you strain your plantar fascia, it becomes weak, swollen and irritated (inflamed). The resulting pain may be isolated in the heel or may appear at different points on the bottom of the foot, from time to time; it may occur in one foot or both. Some think that plantar fasciitis pain is caused by irritation of nerves from tissue swelling or inflammation, but it is debatable. Plantar fasciitis is common in middle-aged people; it also occurs in younger people who are on their feet a lot, such as athletes or soldiers. The plantar fascia is a strong band of connective tissue that extends from the base of the toes, along the bottom of the foot, to the bottom of the heel (calcaneous bone); it acts like a bowstring to maintain the arch of the foot. What are heel spurs? The inflammatory reaction of the heel bone may produce spike-like projections of new bone, called heel spurs. The spurs sometimes show on X-rays. They neither cause the initial pain nor do they cause the initial problem. However, later, having to walk on spurs may cause sharp pain. What causes plantar fasciitis? Plantar fasciitis is caused by straining the ligament that supports your arch. Repeated strain can cause tiny tears in the ligament. These lead to pain and swelling. During walking, the plantar fascia experiences tension up to twice the body weight with each step. While this is normal, those who spend much time on their feet, such as nurses, waiter/waitress head/waiters, and mail carriers, often experience plantar fasciitis. Athletes involved in tennis or other racquet sports, race walking, jogging or running also show a higher incidence of plantar fasciitis than do those participating in other activities. Thus, it's clear that plantar fasciitis is predominantly an overuse injury. In fact, any activity that results in prolonged tension and stress on the plantar fascia may cause plantar fasciitis. It is possible that changes in footwear may play a role in causing plantar fasciitis, no matter what activity is occurring. Those who are overweight are prone to plantar fasciitis. This is true even for sedentary people who get little physical activity. Abnormalities of the foot and ankle joints may predispose some individuals to development of plantar fasciitis (specifically, over pronation of the subtalar joint). Contributing Factors * Flat feet * Toe running, hill running * Sudden weight increase * High-arched, rigid feet * Soft terrain, e.g. running on sand * Obesity * Pronated feet (rolled inward) * Sudden increase in activity * Family tendency * Poor shoe support * Worn out or poorly fitted shoes * Increasing age * Walking, standing or running for long periods of time, especially on hard surfaces. How is the Injury Treated? Rest Your Feet: Limit, or if possible, stop activities that are causing your heel pain. Try to avoid running or walking on hard surfaces, such as concrete. Use pain as your guide. If your foot is too painful, rest it. Ice: Ice the sore area for 30 to 60 minutes, several times a day, to reduce inflammation and relieve pain. Apply a plastic bag of crushed ice (or a bag of frozen peas) over a towel. Ice the sore area for 15 minutes after activity/exercise. Application of heat is not generally recommended, as heat expands the bone and connective tissue, perhaps exerting greater pressure on nerves and thereby increasing pain. If heat is used, follow it with ice. Medication: If your condition developed recently, anti-inflammatory/analgesic medication, combined with heel pads (see below) may be all that is necessary to relieve pain and to reduce inflammation. If no pain relief has occurred after 2-3 weeks, however, your doctor may inject either cortisone or local anesthetic directly into the tender area. Exercises: Do simple exercises, such as calf stretches and towel stretches (see below) several times a day, especially when you first get up in the morning. These can help your ligament become more flexible and strengthen the muscles that support your arch. Shoes: Poorly fitting shoes can cause plantar fasciitis. The best type of shoe to wear is a good walking or running shoe with good shock absorption and excellent arch support. You should choose the one that fits the best. [place] with your athletic shoes to find a pair that is comfortable and causes fewer symptoms. Put your shoes on as soon as you get out of bed; going barefoot or wearing slippers may make your pain worse. Good brands include (but are not limited to): New Balance, Asics, Saucony, SAS and Merrel s. Taping: Your doctor may tape your foot to maintain the arch. This takes some of the tension off the plantar fascia. Weight Loss: If your weight is putting extra stress on your feet, your doctor may encourage you to try a weight-loss program. Orthotics: An orthotic insole is a molded piece of rubber, plastic, or other material that you insert into your shoe. It corrects the alignment of your foot and cushions your foot from excessive pounding. These may be prescription or non-prescription. Prescription orthotics are custom-fitted and may fit better and control pain better, but are very expensive. Night Splints: A night splint holds the foot with the toes pointed up and the ankle at a 90-degree angle. This position applies a constant, gentle stretch to the plantar fascia. Corticosteroid Shots: Steroids may be injected into the tender area to reduce inflammation. REHAB Exercises to stretch the plantar fascia, the calf muscles, and the Achilles tendon. Tightness of the muscles of the calves may contribute to plantar fasciitis, so stretching the calf muscles is important to rehabilitation, as is stretching of the plantar fascia itself. Plantar fascial stretches Assisted Dorsiflexion/Plantar Fascia Stretch: Sit on the floor or ground, barefoot, with both legs outstretched. Use a towel or elastic band and wrap it around the ball (and not the toes) of the affected foot. Use the towel or elastic band to provide resistance to upward movement of the forefoot. Pull foot upward (toward your body) with the help of the elastic band or towel, and then return to the starting position. Ten repetitions are recommended. Perform the sequence at least three times a day. Alternate Plantar Fascia Stretch: Sit upright in a chair, barefoot. Place the ankle of the affected foot on your opposite knee. Using the same hand as the affected foot, reach across and grab the toes. Flex the ankle toward and pull the toes toward the cee. To test the stretch, place the thumb of your hand on the bottom of the foot. You should be able to feel the cord-like plantar fascia, running the length of the foot. Hold the stretch for a count of 10, then relax. Repeat 10 times. Do the sequence at least three times a day. Achilles/Calf Stretches Strengthening the muscles of the calves may contribute to successful rehabilitation of plantar fasciitis, as well as prevent reoccurrence. The exercises below will help strengthen the calf muscles. Calf and Achilles Tendon Stretch (Gastrocnemius Stretch): Face a wall, standing an arm's length away. Place one foot back. Place both hands on the wall. Bend the elbows and knee of your forward leg, keeping the heel of the backward foot on the floor and keeping your body straight (aligned), until your forehead nearly touches the wall, or until significant stretch is felt in the muscles of the calf of the backward leg. Hold this position for 10 to 15 seconds. Extend elbows (straighten your arms and stand upright again) and maintain this position for 10 seconds. Repeat this cycle 15 to 20 times. Switch legs and repeat the exercise. documented in this encounter [facility] 01-28-2024 Note HNO ID: [id number] Author: JOISHARDA SNIDER, ? Service: ? Author Type: Physician Type: Progress Notes Filed: 01/28/2024 22:14 Note Text: Consultation requested by Dr. Carrion for an opinion regarding right foot pain. My final recommendations will be communicated back to the requesting physician by way of shared Medical record or letter to requesting physician via [place] mail. Initial Podiatric Office Visit: Chief Complaint: This 48 year old male who presents with chief complaint:right heel pain HPI Patient presents to clinic for evaluation of right foot Has pain to the right heel. Has been on/off for about 3 years. States the pain is present whenever he is on his foot for long duration. Also has pain when he first wakes up in the morning. Has custom orthotics that are 3-4 years old. Has history of psoriatic arthritis. PAIN EVALUATION 01/28/2024 1028 Pain Level: 9 Pain Location: Other: See Comment bilateral foot Description: Sore Duration Units: Years Frequency: Intermittent Intervention/Comfort measure: Relaxation No results found for: HBA1C PCP: Daniel Carrion MD PAST MEDICAL HISTORY Diagnosis Date Psoriasis and similar disorders Current Outpatient Medications Medication Sig OTEZLA 30 mg tablet Take 30 mg by mouth two times a day. calcipotriene (DOVONEX) 0.005 % oint APPLY OINTMENT DAILY TO AFFECTED LESION clobetasol (TEMOVATE) 0.05 % cream APPLY CREAM TO AFFECTED AREAS DAILY TO TWICE DAILY DIRECTED multivitamins(DAILY MULTIVITAMIN TAB) Take one(1) tablet daily. DOVONEX 0.005 % TOPICAL cream Apply to psoriasis as needed for resolution - dispense three tubes for each refill (Patient not taking: Reported on 01/28/2024) No current facility-administered medications for this visit. ALLERGIES No Known Allergies PAST SURGICAL HISTORY Procedure Laterality Date NONE No family history on file. Social History Tobacco Use Smoking status: Former Current packs/day: 0.00 Types: Cigarettes Quit date: 06/10/2003 Years since quittin.6 Smokeless tobacco: Never Vaping Use Vaping status: Never Used Substance Use Topics Alcohol use: Not Currently Drug use: Not Currently REVIEW OF SYSTEMS GENERAL: Negative for Malaise, significant weight loss, fever RESPIRATORY: Negative for cough, wheezing and shortness of breath CARDIOVASCULAR: Negative for chest pain, leg swelling and palpitations GI: Negative for abdominal discomfort, blood in stools or black stools and change in bowel habits : Negative for dysuria, frequency and incontinence MUSCULOSKELETAL: Negative for joint pain or swelling, back pain, and muscle pain. SKIN: Negative for lesions, rash, and itching. HEMATOLOGY/LYMPHOLOGY Negative for prolonged bleeding, bruising easily, and swollen nodes. ENDOCRINE: Negative for cold or heat intolerance, polyuria, polydipsia and goiter. NEURO: negative Physical Exam: Constitutional: Pt is a well developed 48 year old male who is alert, oriented and cooperative Eyes: Following during examination. No redness or drainage. Respiratory: RR normal and nonlabored. Even breathing. No evidence of distress or shortness of breath. Psychology: Patient is engaged during conversation. Normal affect and mood. Does not appear depressed or anxious during encounter. Vascular: Dorsalis pedis and posterior tibial pulses palpable as b/l Capillary Fill time < 5 seconds to digits 1-5 b/l Skin temperature warm to warm proximal to distal b/l Hair growth present to digits Neurological: intact light touch/epicritic sensation - tinel b/l intact protective sensation no significant neurological deficits Dermatological: Nails 1-5 b/l appear normal. Webspaces clean and dry 1-4 b/l. Skin appears well hydrated and supple. good color, texture, turgor. No open lesions present. No callosities present. Musculoskeletal/Orthopaedic: Patient has pain to palpation of right plantar medial heel Foot type is slight pronated structurally AJ ROM is full with knee extended and flexed 1st MPJ is full when loaded and no pain or crepitus are noted with ROM. MTJ, STJ are full and free of pain and crepitus. +5/5 muscle strength dorsiflexion, plantarflexion, inversion, eversion b/l Large bunion is present to left foot Radiographs: 3 views b/l foot ordered January 28, 2024: I have personally reviewed and interpreted these XR myself: plantar heel spur. No acute fracture ASSESSMENT: (M72.2) Plantar fasciitis (primary encounter diagnosis) (M20.12) Hallux valgus of left foot PLAN: 1. History and physical examination performed. 2. XR reviewed with patient and interpreted today 3. Discussed right heel pain. Discussed treatment options not limited to stretching, icing, continued use of inserts, over the counter pain reliever. Offered injection. Patient declined. If pain fails to improve, consider injection. 4. Discussed bunion of left foot. No pain. Contin (more content not included)... [facility] 01-28-2024 History of Presen t illness Narrative Consultation requested by Dr. Carrion for an opinion regarding right foot pain. My final recommendations will be communicated back to the requesting physician by way of shared Medical record or letter to requesting physician via [place] mail. Initial Podiatric Office Visit: Chief Complaint: This 48 year old male who presents with chief complaint:right heel pain HPI Patient presents to clinic for evaluation of right foot Has pain to the right heel. Has been on/off for about 3 years. States the pain is present whenever he is on his foot for long duration. Also has pain when he first wakes up in the morning. Has custom orthotics that are 3-4 years old. Has history of psoriatic arthritis. PAIN EVALUATION 01/28/2024 1028 Pain Level: 9 Pain Location: Other: See Comment bilateral foot Description: Sore Duration Units: Years Frequency: Intermittent Intervention/Comfort measure: Relaxation No results found for: HBA1C PCP: Daniel Carrion MD PAST MEDICAL HISTORY Diagnosis Date Psoriasis and similar disorders Current Outpatient Medications Medication Sig OTEZLA 30 mg tablet Take 30 mg by mouth two times a day. calcipotriene (DOVONEX) 0.005 % oint APPLY OINTMENT DAILY TO AFFECTED LESION clobetasol (TEMOVATE) 0.05 % cream APPLY CREAM TO AFFECTED AREAS DAILY TO TWICE DAILY DIRECTED multivitamins(DAILY MULTIVITAMIN TAB) Take one(1) tablet daily. DOVONEX 0.005 % TOPICAL cream Apply to psoriasis as needed for resolution - dispense three tubes for each refill (Patient not taking: Reported on 01/28/2024) No current facility-administered medications for this visit. ALLERGIES No Known Allergies PAST SURGICAL HISTORY Procedure Laterality Date NONE No family history on file. Social History Tobacco Use Smoking status: Former Current packs/day: 0.00 Types: Cigarettes Quit date: 06/10/2003 Years since quittin.6 Smokeless tobacco: Never Vaping Use Vaping status: Never Used Substance Use Topics Alcohol use: Not Currently Drug use: Not Currently REVIEW OF SYSTEMS GENERAL: Negative for Malaise, significant weight loss, fever RESPIRATORY: Negative for cough, wheezing and shortness of breath CARDIOVASCULAR: Negative for chest pain, leg swelling and palpitations GI: Negative for abdominal discomfort, blood in stools or black stools and change in bowel habits : Negative for dysuria, frequency and incontinence MUSCULOSKELETAL: Negative for joint pain or swelling, back pain, and muscle pain. SKIN: Negative for lesions, rash, and itching. HEMATOLOGY/LYMPHOLOGY Negative for prolonged bleeding, bruising easily, and swollen nodes. ENDOCRINE: Negative for cold or heat intolerance, polyuria, polydipsia and goiter. NEURO: negative Physical Exam: Constitutional: Pt is a well developed 48 year old male who is alert, oriented and cooperative Eyes: Following during examination. No redness or drainage. Respiratory: RR normal and nonlabored. Even breathing. No evidence of distress or shortness of breath. Psychology: Patient is engaged during conversation. Normal affect and mood. Does not appear depressed or anxious during encounter. Vascular: Dorsalis pedis and posterior tibial pulses palpable as b/l Capillary Fill time < 5 seconds to digits 1-5 b/l Skin temperature warm to warm proximal to distal b/l Hair growth present to digits Neurological: intact light touch/epicritic sensation - tinel b/l intact protective sensation no significant neurological deficits Dermatological: Nails 1-5 b/l appear normal. Webspaces clean and dry 1-4 b/l. Skin appears well hydrated and supple. good color, texture, turgor. No open lesions present. No callosities present. Musculoskeletal/Orthopaedic: Patient has pain to palpation of right plantar medial heel Foot type is slight pronated structurally AJ ROM is full with knee extended and flexed 1st MPJ is full when loaded and no pain or crepitus are noted with ROM. MTJ, STJ are full and free of pain and crepitus. +5/5 muscle strength dorsiflexion, plantarflexion, inversion, eversion b/l Large bunion is present to left foot Radiographs: 3 views b/l foot ordered January 28, 2024: I have personally reviewed and interpreted these XR myself: plantar heel spur. No acute fracture ASSESSMENT: (M72.2) Plantar fasciitis (primary encounter diagnosis) (M20.12) Hallux valgus of left foot PLAN: 1. History and physical examination performed. 2. XR reviewed with patient and interpreted today 3. Discussed right heel pain. Discussed treatment options not limited to stretching, icing, continued use of inserts, over the counter pain reliever. Offered injection. Patient declined. If pain fails to improve, consider injection. 4. Discussed bunion of left foot. No pain. Continue with wider shoes. 5. Discussed orthotics. Already has a pair that is 3-4 years old. This is helping. Would like a new pair. I do feel custom orthotics will be of great benefit to patient. Custom orthotics ordered. Sharda Eckert DPM Podiatry [address] [facility] [address] Dept: [phone] Dept AMB ROOMING INTAKE FLOWSHEET DATA Risk Screening Do you have concerns about personal safety or safety in the home?: No Pain Pain Level: 9 Pain Location: Other: See Comment (bilateral foot) Description: Sore Duration Units: Years Frequency: Intermittent Intervention/Comfort measure: Relaxation Patient presents with: Left Foot - New, Pain Right Foot - New, Pain Patient presents for bilateral heel pain that can radiate into the arch for a few years. Patient states that the right is worse than the left. Hx of arthritis. Pain is worse in the afternoons after being on his feet often and first thing in the morning. States that he wears custom orthotics, but they are about 3-4 years old. XR prior to appointment. documented in this encounter [facility] 01-28-2024 Note HNO ID: [id number] Author: KIRSTEN RUSH RN Service: ? Author Type: Registered Nurse Type: Progress Notes Filed: 01/28/2024 22:14 Note Text: AMB ROOMING INTAKE FLOWSHEET DATA Risk Screening Do you have concerns about personal safety or safety in the home?: No Pain Pain Level: 9 Pain Location: Other: See Comment (bilateral foot) Description: Sore Duration Units: Years Frequency: Intermittent Intervention/Comfort measure: Relaxation Patient presents with: Left Foot - New, Pain Right Foot - New, Pain Patient presents for bilateral heel pain that can radiate into the arch for a few years. Patient states that the right is worse than the left. Hx of arthritis. Pain is worse in the afternoons after being on his feet often and first thing in the morning. States that he wears custom orthotics, but they are about 3-4 years old. XR prior to appointment. [facility] 01-28-2024 History of Presen t illness Narrative Radiology Service Progress Note PATIENT NAME: Daniel Paz DATE OF SERVICE: January 28, 2024 TIME: 10:10 AM PATIENT IDENTITY VERIFICATION COMPLETED USING TWO (2) IDENTIFIERS: Name and Date of confirmed by patient verbally. FALL SCREENING: Has the patient had 2 falls in the last year or 1 fall with injury or currently using an Ambulatory Assistive Device (Walker, Cane, Wheelchair, Crutches, etc.)? No PATIENT GENDER DATA: Male PATIENT RELEVANT IMPLANT DATA REVIEWED: Not Applicable PATIENT PRESENTS WITH AN IMPLANTABLE OR ATTACHED DICTAPHONE TYPIST: No RADIOLOGY DEPARTMENT: General X-ray: Exam(s) Completed: Lower Extremity X-Ray(s): Feet, Bilateral and Wt. Bearing PERIPHERAL IV DATA: Not applicable SIGNED BY: ELODIA Silver) January 28, 2024 10:10 AM documented in this encounter [facility] 01-28-2024 Note HNO ID: [id number] Author: CECILIO KENNEY RT(R) Service: ? Author Type: Technologist Type: Progress Notes Filed: 01/28/2024 10:10 Note Text: Radiology Service Progress Note PATIENT NAME: Daniel Paz DATE OF SERVICE: January 28, 2024 TIME: 10:10 AM PATIENT IDENTITY VERIFICATION COMPLETED USING TWO (2) IDENTIFIERS: Name and Date of confirmed by patient verbally. FALL SCREENING: Has the patient had 2 falls in the last year or 1 fall with injury or currently using an Ambulatory Assistive Device (Walker, Cane, Wheelchair, Crutches, etc.)? No PATIENT GENDER DATA: Male PATIENT RELEVANT IMPLANT DATA REVIEWED: Not Applicable PATIENT PRESENTS WITH AN IMPLANTABLE OR ATTACHED DICTAPHONE TYPIST: No RADIOLOGY DEPARTMENT: General X-ray: Exam(s) Completed: Lower Extremity X-Ray(s): Feet, Bilateral and Wt. Bearing PERIPHERAL IV DATA: Not applicable SIGNED BY: Cecilio Kenney RT(R) January 28, 2024 10:10 AM [facility] 01-22-2024 Note [facility] Medical Records Department [address] [place] [address] History Physical Exam 01/22/24 1024 MR#: [id number] Acct: [id number] Name: DANIEL PAZ Rep #: [id number] : 1975 48 From: Marty Romo MD PCP: Dr. Daniel Carrion MD Status:[facility] Location: [place] [address] HPI - General HPI Narrative DANIEL PAZ, is a 48 M who presents for screening colonoscopy. Patient has never had a colonoscopy in the past. He denies abdominal pain or blood in the stool. No family history of colon cancer. [facility] Medical History Wears contact lenses Wears glasses Alcohol use Psoriasis Heartburn Former smoker History of atrial fibrillation History of stress test History of echocardiogram Cardiology follow-up encounter GERD (gastroesophageal reflux disease) Psoriatic arthritis Nicotine dependence KIMBER (obstructive sleep apnea) Hyperlipidemia New onset atrial fibrillation (07/13/19) Near syncope Home Medications ???Medication ???Instructions ???Recorded ???Last Taken ???Type calcipotriene 0.005 % topical 1 applic topical DAILY 03/18/21 Unknown History ointment clobetasol 0.05 % topical cream 1 applic topical DAILY 03/18/21 Unknown History apremilast 30 mg tablet (Otezla) 30 mg PO BID 01/25/22 Unknown History metoprolol tartrate 25 mg tablet 12.5 mg PO QHS PRN AFIB 01/20/24 Unknown History Allergy/AdvReac Type Severity Reaction Status Date / Time cat dander (cats) Allergy nasal Verified 01/22/24 09:35 congestion Family History Brother Psoriasis A-fib Father Brain aneurysm Surgical History History of colonoscopy H/O arthroscopy of left knee Social History household members: significant other and children number of children: 1 current occupational status: unemployed Smoking Status: Former smoker quit date: 07/23/19 alcohol intake: former substance use type: does not use Past Medical/Surgical History Planned Operation Planned Operative Procedure(s): CSCOPE Previous Hospitalizations/Surgeries HX Hospitalizations: No Any Problems With Anesthesia: No You/Your Family Experience Fever (Hyperthermia) With Anes: No Cholinesterase deficiency: No Cardiovascular Hx Hypertension: No Respiratory Hx Sleep Apnea: No Hx Respiratory Tract Infection/Cold (presently): No Do You Snore Loudly (louder than talking or can be heard): Yes Do You Often Feel Tired/ Fatigued/ Sleepy Dring Daytime?: No Has Anyone Observed You Stop Breathing During Sleep?: No Result (for STOP score): Negative Smoking Status: Former smoker Neurological Does patient have nerve stimulator: No Reproduction : No Psycho/Social Hx Alcohol Use: Yes Miscellaneous Recent Exposure to Contagious Disease: No Allergies cat dander (cats) Allergy (Verified 01/22/24 09:35) nasal congestion Discharge Is Pt Admitted From a [facility]sp, or a Prison: No After D/C, Where Do you Plan to Go: Return Home Vital Signs Vital Signs Vital Signs: 01/22/24 09:38 01/22/24 09:38 Temperature 98.1 F Temperature Source Temporal Pulse Rate 84 Respiratory Rate 16 Respiratory Pattern Normal Blood Pressure 118/82 H Blood Pressure Mean 94 Blood Pressure Source Monitor Blood Pressure Position Semi-Fowlers Blood Pressure Location Left Arm Pulse Ox 99 Oxygen Delivery Method Room Air Weight Weight: 199 lb 1.239 oz Body Mass Index (BMI) 28.5 Physical Exam Const alert and oriented x3 HEENT normocephalic Eyes PERRL Resp normal respiratory effort and normal air movement Cardio regular rate and regular rhythm GI soft to palpation, non-tender and non-distended Extremity normal to inspection Assessment Plan Assessment/Plan (1) Encounter for screening for malignant neoplasm of colon: PLAN: I explained endoscopy in detail to the patient. I explained the risks including but not limited to stroke or heart attack with anesthesia, perforation of the GI tract, bleeding, infection. I explained that any of these could necessitate further emergency surgery. The patient understands and all questions were answered sufficiently. The patient wishes to proceed with procedure. Marty Romo MD Pager: [facility] [address] [place] [address], [address] [place] [address] Office: Surgery Risks - Colonoscopy Risks Include but are not Limited To: Risks include but are not limited to: Bleeding, perforation requiring further surgery, inability to complete colonoscopy requiring barium enema. (more content not included)... [facility] 01-26-2023 Telephone encounter Note Name of Caller: Daniel Contact Reason for Appointment: Needs to get in as soon as possible as a new patient. Please advise Office Name: [facility] Medication Refills need, if any: Yes [facility] [employer] 01-26-2023 Miscellaneous Notes Name of Caller: Daniel Contact Reason for Appointment: Needs to get in as soon as possible as a new patient. Please advise Office Name: [facility] Medication Refills need, if any: Yes Name of caller: Daniel Contact phone number: [phone] Relationship to Patient: self Provider: Practice: Rheumatology Chief Complaint/Reason for Call: Pt is needing to make a new pt appt from referral please advise Best time of day caller can be reached: any Patient advised that office/PCP has 24-48 business hours to return their call: No documented in this encounter [facility] [employer] 01-23-2023 Telephone encounter Note Name of caller: Daniel Contact phone number: [phone] Relationship to Patient: self Provider: Practice: Rheumatology Chief Complaint/Reason for Call: Pt is needing to make a new pt appt from referral please advise Best time of day caller can be reached: any Patient advised that office/PCP has 24-48 business hours to return their call: No [facility] Evaluation note No assessment inform ation available [facility] Work Phone: Evaluation note Diagnosis Plantar fasciitis- Primary Plantar fascial fibromatosis Hallux valgus of left foot [facility] Bilateral foot pain Pain in limb [facility] ([facility])No reason for referral information availableWUniversity [facility] Work Phone: Reason for visit Narrative* Diagnostic Procedure Only (Routine) - Closed Specialty Diagnoses / Procedures Referred By Maura dick Referred To Contact XR IMAGING Diagnoses Bilateral foot pain Procedures XR FOOT GENERAL 3V AP/LAT/OBL BILATERAL RADEX FOOT COMPLETE MINIMUM 3 VIEWS Sharda Eckert [address] [place] [address] [place] [id number] Referral ID Status Reason Start Date Expiration Date V isits Requested Visits Authorized [id number] Closed Auto-Generate d Referral 01/22/2024 02/20/2025 1 1 [facility] Chief Complaint and Reason for Visit Chief Complaint palpitations Chief Complaint CHEST XRAY Advance Directives No Advanced Directives Records Found Advance Directive Response Recorded Date/ Time Living Will No January 25, 2022 2:36pm Power of Freezer Person No January 2:36pm Summary Purpose Family History No Family History Records Found Relationship Condition Age at Onset Recorded Date/T falguni brother Psoriasis Unknown Atrial fibrillation Unknown father Cerebral aneurysm Unknown Additional Source Comments Goals (unrecognized section and content) Goals may be documented in a n alternate sectionGoals may be documented in an alternate sectionGoals may be documented in an alternate sectionGoals may be documented in an alternate section Care Teams (unrecognized sec tion and content) Team Status: Active Member Role Status Dates Dr. Daniel Carrion MD Family Provider Active Dr. Daniel Carrion MD Primary Care Provider Active Team Status: Inactive Member Role Status Dates Dr. Daniel Carrion MD Primary Care Provider, Attending Jil coleman Active Team Status: Inactive Member Role Status Dates Dr. Daniel Carrion MD Primary Care Provide r, Attending Provider, Referring Provider Active Hat Conditioner Relationship Specialty Start Date End Date Daniel Carrion MD [address] [place] [address] PCP - General Family Medicine 12/18/23 Hat Conditioner Relationship Specialty Start Date End Date Daniel Carrion MD [address] [place], [place] [id number] PCP - General Family Medicine 12/18/23 Team Status: Inactive Member Role Status Dates Dr. Daniel Carrion MD Primary Care Provider Active Start: July 18, 2024 End: July 18, 2024 Terrance McMorrow MAINTENANCE MANAGER, MAINTENANCE MANAGER-C Attending Provider Active Start: July 18, 2024 End: July 18, 2024 Reason for Visit (unrecogniz ed section and content) Reason Onset Date Comments new patient appt from referral 01/23/2023 Reason Comments New Pain Source Comments (unrecognize d section and content) In the event this informatio n is protected by the Federal Confidentiality of Alcohol and Drug Abuse Patient Records regulations: The Federal rules restrict any use of the information to criminally investigate or prosecute any alcohol or drug abuse patient.[facility] the event this information is protected by the Federal Confidentiality of Alcohol and Drug Abuse Patient Records regulations: The Federal rules restrict any use of the information to criminally investigate or prosecute any alcohol or drug abuse patient.[facility] (unrecognized sect ion and content) No Status Records FoundNo Status Records FoundNo Status Records Found INFORMATION SOURCE (unrecogn ized section and content) DATE CREATED AUTHOR 02/04/2024 [facility] DATE CREATED AUTHOR AUTHOR'S ORGANIZ ATION 07/30/2024 [facility] DATE CREATED AUTHOR AUTHOR'S ORGANIZ ATION 02/12/2025 [facility] FOR RECORDS PERTAINING TO PATIENTS WHO ARE OR HAVE BEEN ENROLLED IN A CHEMICAL DEPENDENCY/SUBSTANCEABUSE PROGRAM, SOME INFORMATION MAY BE OMITTED. This clinical summary was aggregated from multiple sources. Caution should be exercised in using it in the provision of clinical care. This summary normalizes information from multiple sources, and as a consequence, information in this document may materially change the coding, format and clinical context of patient data. In addition, data may be omitted in some cases. CLINICAL DECISIONS SHOULD BE BASED ON THE PRIMARY CLINICAL RECORDS. [facility]. provides no warranty or guarantee of the accuracy or completeness of information in this document.
[2025-05-05 13:57] LABS: PSA,Total - Annual Screen 0.74 ng/mL (0.02-4.00)
== END | disposition home or self-care (01) ==
LOC: MTLAB 11:31
PROVIDERS: PCP Family Medicine; Referring Provider Nurse Practitioner Family; Visit Provider Nurse Practitioner Family
DX: Z12.5 Encounter for screening for malignant neoplasm of prostate (principal)
CPT/HCPCS: 36415; 84153; G0103